=== PATIENT | female | born 1950 | race Caucasian/White ===

== ENCOUNTER → 2020-03-25 15:35 | Outpatient (CLI) | payer MEDICARE, OTHER, SELFPAY ==
--- NOTE | ~2020-03-25 | XR_ITS ---
EXAMINATION: XR chest 2V DATE: 03/25/2020 16:16 INDICATION: Shortness of breath. Chest wall pain. TECHNIQUE: Frontal and lateral views of the chest were obtained. COMPARISON: Chest single view 08/26/2016, thoracic spine CT 10/12/2017 FINDINGS: The chest demonstrates clear lungs without pneumonia, pleural effusion, or pneumothorax. Th e heart size is normal. There are epidural electrodes in thoracic spine. There are surgical clips in the abdomen and left axilla. IMPRESSION: 1. No acute cardiopulmonary disease. Reviewed, dictated and finalized at location A.
== END ==
PROVIDERS: PCP Physician Assistant; Visit Provider Physician Assistant
DX: R06.02 Shortness of breath (principal)
CPT/HCPCS: 71046

== ENCOUNTER → 2022-09-16 14:26 | Outpatient (CLI) | payer MEDICARE, OTHER, SELFPAY ==
--- NOTE | ~2022-09-16 | DEXA_ITS ---
Bone Density Report Name: YESSY KENNEDY Age: 72 Sex: Female Ethnicity: White Date of : 1950 Indication: postmenopausal osteoporosis; height loss; prior fracture; asthma or emphysema; hysterectomy; Referring Provider: GERI, CHOLO Study: Bone densitometry was performed. Exam Date: September 16, 2022 Accession number: [id number] Bone Density: Region BMD T-score Z-score Classification AP Spine (L1-L4) 0.756 -2.6 -0.4 Osteoporosis Femoral Neck (Right) 0.407 -4.0 -2.1 Osteoporosis Total Hip (Right) 0.493 -3.7 -2.1 Osteoporosis World Health Organization criteria for BMD impression classify patients as: Normal (T-score at or above -1.0), Osteopenia (T-score between -1.0 and -2.5), or Osteoporosis (T-score at or below -2.5). 10-year Fracture Risk: FRAX not reported because: Some T-score for Spine Total or Hip Total or Femoral Neck at or below -2.5 Prior hip or vertebral fracture Previous Exams: Region Exam Age BMD T-score BMD Change BMD Change Date g/cm2 vs Baseline vs Previous AP Spine(L1-L4) 09/16/2022 72 0.756 -2.6 0.033* 0.033* 11/16/2018 68 0.723 -2.9 Total Hip(Right) 09/16/2022 72 0.493 -3.7 -0.158* -0.158* 11/16/2018 68 0.651 -2.4 *Denotes significance at 95% confidence level, LSC for AP Spine = 0.022 g/cm2, LSC for Total Hip = 0.027 g/cm2 Clinical Information Provided by Patient: Have had a previous hip or vertebral fracture Has had a low trauma fracture Has used the following medications: Vitamin D, GREGG Has the following medical conditions: Asthma or Emphysema, Hysterectomy, BR 1999 Patient maximum height was 65 Menopause Age: 42 No regular weight bearing exercise Does not regularly consume dairy products Drinks caffeinated beverages Onset of menses at age 14 Number of children 1 Missed period for more than 6 months in a row Impression: The patient has established osteoporosis, based on the Right Femoral Neck T-score and the existence of a prior fracture. The patient has risk factors, including: previous fracture. The BMD for the Total Hip(Right) decreased, changing by -0.158 since the last DXA exam. Discussion: HIGH RISK OF FRACTURE. BONE DENSITY IS UNDESIRABLY LOW AT ONE OR MORE SKELETAL SITES, CONSISTENT WITH POSTMENOPAUSAL OSTEOPOROSIS. This patient's lowest T-score, in a patient who has previously fractured, meets the World Health Organization's (WHO) criteria for severe osteoporosis. In untreated patients, the risk of osteoporotic fracture increases approximately tw
== END ==
PROVIDERS: PCP Physician Assistant; Visit Provider Physician Assistant
DX: Z78.0 Asymptomatic menopausal state (principal); M81.0 Age-related osteoporosis without current pathological fracture
CPT/HCPCS: 77080

== ENCOUNTER 2023-05-20 22:54 | Observation (INO) | payer MEDICARE, OTHER, SELFPAY ==
--- NOTE | ~2023-05-20 | CT_ITS ---
EXAMINATION: CT brain wo con DATE: 05/21/2023 00:39 INDICATION: Dizziness, weakness, nausea, generalized body pain TECHNIQUE: Computed tomography (CT) of the head was performed without intravenous contrast. The mA wa s adjusted according to patient size. Iterative reconstruction technique was employed. Exam dose: 60 5.33 mGy-cm total exam DLP. COMPARISON: 04/01/2016 CT brain FINDINGS: Bilateral vertebral artery, basilar artery and prominent bilateral carotid siphon internal carotid artery calcifications. Chronic right basal ganglia/periventricular infarct No intracranial mass lesion or hemorrhage or recent cerebrovascular accident is evident. No midline s hift or mass effect. No subdural or epidural hematoma. No fracture or bone destruction of the cranial vault. The mastoid air cells and included paranasal si nuses are unremarkable. IMPRESSION: Cerebral atherosclerosis and chronic small vessel ischemic changes of cerebral white mat ter, chronic right basal ganglia/periventricular lacunar infarct No acute intracranial finding or significant change since 04/01/2016 Reviewed, dictated and finalized at Location [facility]. Reviewed, dictated and finalized at location A. IMPRESSION: Cerebral atherosclerosis and chronic small vessel ischemic changes of cerebral white matter, chronic right basal ganglia/periventricular lacunar infarct No acute intracranial finding or significant change since 04/01/2016
[2023-05-20 22:58] VITALS: BP 134/81; PULSE 81; RESP 20; TEMP 36.6; O2SAT 100
--- NOTE | 2023-05-20 23:17 | ECG_ITS ---
Measurements Intervals [place] Rate: 68 P: 62 [place]: 188 QRS: -81 QRSD: 170 T: 77 QT: 433 QTc: 461 Interpretive Statements ELECTRONIC VENTRICULAR PACEMAKER BASELINE ARTIFACT NO FURTHER INTERPRETATION POSSIBLE NO PREVIOUS ECG AVAILABLE FOR COMPARISON Electronically Signed On 05-21-2023 13:40:55 CDT by Rancho Bill M.D.
[2023-05-20 23:45] LABS: Basophils Percent Auto 0.3 % (0.2-1.2); Eosinophils Absolute Auto 0.1 K/mm3 (0-0.3); Eosinophils Percent Auto 0.7 % (0-4.4); Hematocrit 37.1 % (37.0-47.0); Hemoglobin 11.8 g/dL (12.0-15.0); Immature Granulocyte Absolute 0.03 K/mm3 (0.00-0.031); Immature Granulocyte Percent A 0.2 % (0-0.5); Lymphocytes Absolute Auto 3.47 K/mm3 (0.9-3.2); Lymphocytes Percent Auto 28.7 % (18.3-44.2); Mean Corpuscular HGB Conc 31.8 g/dl (32-36); Mean Corpuscular Volume 97.4 fl (80-100); Mean Platelet Volume 10.9 fl (7.4-10.4); Monocytes Absolute Auto 1.1 K/mm3 (0.1-0.6); Monocytes Percent Auto 9.3 % (2.6-8.5); Neutrophils Absolute Auto 7.3 K/mm3 (1.3-6.7); Neutrophils Percent Auto 60.8 % (45.5-73.1); Platelet Count Result 326 k/mm3 (150-375); Red Blood Count 3.81 M/mm3 (4.2-5.4); Red Cell Distribution Width 12.4 % (11.5-14.5); White Blood Count 12.1 K/mm3 (4.5-10.0)
[2023-05-21] VITALS (10 sets, daily range): BP systolic 125–173; BP diastolic 46–79; PULSE 63–78; RESP 12–21; TEMP 36.6–36.8; O2SAT 98–100; BMI 28.3
--- NOTE | 2023-05-21 00:10 | ED.DIZZY ---
HPI - Dizziness General Chief Complaint: Dizziness Stated Complaint: Generalized weakness, dizziness Time Seen by Provider: 05/20/23 23:25 Source: patient and family Mode of arrival: wheelchair Limitations: no limitations History of Present Illness HPI Narrative: 73-year-old female presenting to emergency department chief complaint of dizziness. Patient says that she has been feeling generally weak all day and her son stay with her. No specific areas of weakness and she is not sure why she was feeling that way. When she transitions herself from her wheelchair to the commode she said she got slightly lightheaded like she was off balance but was able to get to the commode and did not fall. After she got off the commode and went to her bed to lay down she reports feeling some severe vertigo like symptoms with room spinning dizziness. Lasted about 5 minutes and then went away. Since then she has not had any further symptoms of dizziness but is still feeling generally weak. Denies any other complaints at this point. All other symptoms and complaints are negative as per ROS. Related Data Home Medications Medication Instructions Recorded Confirmed acetaminophen 500 mg tablet 1,000 mg PO Q12H PRN 11/03/20 05/03/21 (Tylenol Extra Strength) atorvastatin 80 mg tablet 80 mg PO DAILY 11/03/20 05/03/21 cyclosporine 0.05 % eye drops in a 1 drp EACH EYE Q12H 11/03/20 05/03/21 dropperette (Restasis) glimepiride 2 mg tablet 2 mg PO BID 11/03/20 05/03/21 metformin 850 mg tablet 212.5 mg PO BID 11/03/20 05/03/21 zcedpjzi-zbrx-ltca 8 mg-folic 400 1 tablet PO DAILY 11/03/20 05/03/21 mcg-K 50 mcg-lutein 300 mcg tablet (Centrum Silver Women) sertraline 25 mg tablet (Zoloft) 25 mg PO DAILY 11/03/20 05/03/21 simethicone 125 mg capsule (Gas 125 mg PO DAILY PRN 11/03/20 05/03/21 Relief (simethicone)) bisacodyl 5 mg tablet,delayed 5 mg PO ONCE 05/03/21 05/03/21 release (Dulcolax (bisacodyl)) guar gum [Benefiber (guar gum)] PO 05/03/21 05/03/21 dextromethorphan-guaifenesin ER 60 1 tablet PO Q12H 06/30/22 mg-1,200 mg tab,extend release,12hr (Mucinex DM) hydroxyzine HCl 10 mg tablet 10 mg PO TID PRN 06/30/22 lisinopril 40 mg tablet 40 mg PO DAILY 06/30/22 Allergies Allergy/AdvReac Type Severity Reaction Status Date / Time amitriptyline Allergy Mild Unknown Verified 05/20/23 23:03 baclofen Allergy Mild Unknown Verified 05/20/23 23:03 budesonide Allergy Mild Unknown Verified 05/20/23 23:03 carbamazepine Allergy Mild Unknown Verified 05/20/23 23:03 ciprofloxacin Allergy Mild Unknown Verified 05/20/23 23:03 doxycycline Allergy Mild Unknown Verified 05/20/23 23:03 erythromycin base Allergy Mild Unknown Verified 05/20/23 23:03 gabapentin Allergy Mild Unknown Verified 05/20/23 23:03 gatifloxacin Allergy Mild Unknown Verified 05/20/23 23:03 ibuprofen Allergy Mild Unknown Verified 05/20/23 23:03 lithium Allergy Mild Unknown Verified 05/20/23 23:03 metronidazole Allergy Mild Unknown Verified 05/20/23 23:03 mometasone furoate Allergy Mild Unknown Verified 05/20/23 23:03 naproxen Allergy Mild Unknown Verified 05/20/23 23:03 nortriptyline Allergy Mild Unknown Verified 05/20/23 23:03 Penicillins Allergy Mild Unknown Verified 05/20/23 23:03 prednisone Allergy Mild Unknown Verified 05/20/23 23:03 pregabalin Allergy Mild Unknown Verified 05/20/23 23:03 tramadol Allergy Mild Unknown Verified 05/20/23 23:03 milnacipran Allergy Unknown Unknown Verified 05/20/23 23:03 BUPROPION HCL Allergy Mild Unknown Uncoded 05/20/23 23:03 BUSPIRONE HCL Allergy Mild Unknown Uncoded 05/20/23 23:03 CETIRIZINE HCL Allergy Mild Unknown Uncoded 05/20/23 23:03 DULOXETINE HCL Allergy Mild Unknown Uncoded 05/20/23 23:03 FLUOXETINE HCL Allergy Mild Unknown Uncoded 05/20/23 23:03 OXYBUTYNIN CHLORIDE Allergy Mild Unknown Uncoded 05/20/23 23:03 PAROXETINE HCL Allergy Mild Unknown Uncoded 05/20/23 23:03 SERTRALINE HCL Allergy Mild Unknown Uncoded 05/20/23 23:03 THEOPHYLLINE ANHYDROUS [place]
[2023-05-21 00:19] LABS: Appearance Urine Cloudy (Clear); Bacteria Urine 4+ /hpf; Bilirubin Urine Negative (Negative); Blood Urine Trace (Negative); Color Urine Yellow (Yellow); Glucose Urine UA 2+ mg/dL (Negative); Ketones Urine Trace mg/dL (Negative); Leukocyte Esterase Ur 2+ LEU/UL (Negative); Need Manual Microscopic Reviewed; Nitrate Urine Positive (Negative); Protein Urine Trace mg/dL (Negative); Specific Grav Ur 1.025 (1.001-1.035); Squamous Epithelial Cell Urine Few /hpf (Few); Urobilinogen Urine 0.2 mg/dL (<2.0); WBC Urine 51-100 /hpf; pH Urine 6.5 (5.0-9.0)
[2023-05-21 00:20] LABS: Add Urine Microscopic? YES
[2023-05-21] MEDS: CALCIUM CARBONATE (TUMS) 500 MG (200 MG ELEMENTAL) PO (00:58)
[2023-05-21 01:02] LABS: Troponin I < 0.012 ng/mL (0.000-0.034)
--- NOTE | 2023-05-21 01:46 | PC.NURSE ---
called lab to have cmp ran
[2023-05-21 02:24] LABS: Alanine Aminotransferase 19 U/L (6-35); Albumin Level 3.9 g/dL (3.5-5.1); Alkaline Phosphatase 97 U/L (38-126); Anion Gap 9 mmol/L (8-16); Aspartate Amino Transferase 20 U/L (14-36); Bilirubin,Total 0.4 mg/dL (0.2-1.3); Blood Urea Nitrogen 19 mg/dL (7-17); Calcium 10.1 mg/dL (8.4-10.2); Carbon Dioxide 24 mmol/L (22-30); Chloride 104 mmol/L (98-107); Estimated CRCL calculation 68 ml/min; Estimated Glomerular Filt Rate > 60; Glucose 221 mg/dL (65-110); Potassium 4.2 mmol/L (3.4-5.0); Sodium 137 mmol/L (137-145)
[2023-05-21] MEDS: SODIUM CHLORIDE 0.9% IV 1,000 ML 999 ML IV CONT (03:06)
--- NOTE | 2023-05-21 03:06 | PC.NURSE ---
Report received from BERNADINE Powell. Assumed care of patient at this time.
--- NOTE | 2023-05-21 04:11 | ADMGEN ---
This patient, Sho Mabry, was admitted to Medical Room 258-. Patient/family oriented to hospital policies and general routines including ID bracelet, bed and alarms, visiting hours, pain management, procedures, bathroom and other care routines, personal items, smoking policy, room service/diet, and visiting hours. Information on how to activate the Rapid Response Team has been discussed. Patient/Family are encouraged to report perceived risks to care and to ask questions if they do not understand what they are told or what they should do.
[2023-05-21] MEDS: SODIUM CHLORIDE 0.9% IV 1,000 ML 125 ML IV CONT ×2 (05:00→13:03)
--- NOTE | 2023-05-21 06:49 | PM.IMHP ---
H&P: HPI History of Present Illness Date/Time: 05/21/23 06:49 Chief Complaint: Weakness, dizziness Narrative: 73-year-old female with a past medical history of diabetes, hypertension, hyperlipidemia, GERD and anxiety who presented to the ER via private vehicle with family for evaluation of weakness and dizziness. The patient stated that she started feeling bad around 18:00. She got up from our computer and ambulated with her walker to a bedside commode. She used the commode and when she went to get up she felt weak and lightheaded. She decided to go lying on her bed. When she went to lay back on her bed she felt like the wall was moving towards her and that the room was spinning. She denies any changes in visual acuity, headache. She does have chronic nasal congestion and feels dry all the time. She denies any fullness in her ears. She has not had any sore throat or difficulty swallowing. She denies any difficulties in speech. She has chronic weakness and difficulty with ambulation due to neuropathy. She reports that she was recently started on Neurontin about 3 or 4 weeks ago and thinks that some of her symptoms may be due to Neurontin. She reports that it makes her feel like she is in a fog and feels numb all over. She thinks that may have caused some of her dizziness. She denies any increased urinary frequency or urgency. She occasionally feels like she has incomplete bladder emptying but denies any currently. She has not had any hematuria. She reports that she is chronically chilled in keeps her house at 78?. She denies any known fevers. She has been afebrile since admission. In the ER and UA was performed which demonstrated findings suggestive of UTI. Patient has CTA scan of her head in the ER that was negative for acute process. She is not candidate for MRI due to a pacemaker was placed 1 year ago and a neurostimulator that she has had for many years. The patient and her son did not feel patient was strong enough to get up in and out of her wheelchair and return home. The patient lives at home alone. Patient was subsequently admitted for observation. Patient does report that she has loose stools any time she drinks her V8 energy drinks. She had 2 or 3 loose stools yesterday and immediately following my examination of her abdomen she complained of feeling as if she was going to have another bowel movement. She denies any recent antibiotic use or travel. Review of Systems Review of Systems: 12 systems were reviewed with pertinent positives and negatives per HPI. Except as documented in the HPI, all other systems were reviewed and are negative. [facility] Past Medical History Medical History (Updated 05/21/23 @ 08:00 by Alison Brink DO) Breast cancer Complex regional pain syndrome Diabetes Diabetic neuropathy Essential hypertension Fibromyalgia GERD (gastroesophageal reflux disease) Iron deficiency anemia Irritable bowel Stroke Chronic left sided weakness and numbness Surgical History Surgical History (Updated 05/21/23 @ 07:53 by Alison Brink DO) H/O cataract extraction H/O: hysterectomy History of bilateral mastectomy History of left hip replacement History of tonsillectomy Hx of cholecystectomy Pacemaker Left chest placed 2021 Status post insertion of spinal cord stimulator Family History Family History Father Family history of emphysema Acute myocardial infarction, Onset Age: 72 , Onset Age: 72 Mother Multiple myeloma, Onset Age: 92 , Onset Age: 92 Other Family history of malignant neoplasm Social History Social History (Updated 05/21/23 @ 08:02 by Alison Brink DO) Social History: Patient has been since 2020. She lives in her own home. Her only son comes and checks on her 3 or 4 times a week. 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 She uses a wheelchair
[2023-05-21 08:09] LABS: Glucose Point of Care 203 mg/dl (65-105)
[2023-05-21] MEDS: PANTOPRAZOLE 40 MG TABLET PO (08:48)
[2023-05-21] MEDS: INSULIN ASPART (*BKC) 100 UNITS/ML SUB-Q ×3 (08:50→16:58)
[2023-05-21] MEDS: ATORVASTATIN 40 MG TABLET 80 MG PO (08:57)
[2023-05-21] MEDS: guaiFENesin 600 MG/DEXTROMETHORPHAN 30 MG SR TAB 12 HR 2 TAB PO ×2 (08:57→21:18)
[2023-05-21] MEDS: metFORMIN HCL 500 MG TABLET PO ×2 (08:57→17:01)
[2023-05-21] MEDS: lisinopriL 20 MG TABLET 40 MG PO (08:58)
[2023-05-21] MEDS: CHOLECALCIFEROL 1,000 UNITS TABLET 5000 UNITS PO (08:58)
[2023-05-21] MEDS: hydrALAZINE HCL 50 MG TABLET PO ×3 (08:58→21:19)
[2023-05-21] MEDS: ACETAMINOPHEN 500 MG TABLET 1000 MG PO ×2 (08:58→21:18)
[2023-05-21] MEDS: THERAPEUTIC MULTIVITAMINS/MINERALS TAB (*BKC) 1 TABLET PO (08:58)
[2023-05-21 11:28] LABS: IFOB Positive Control Positive; Immunochemical Fecal Occult Bl Negative (N)
[2023-05-21 11:46] LABS: Glucose Point of Care 222 mg/dl (65-105)
[2023-05-21] MEDS: MECLIZINE HCL 12.5 MG TABLET PO (11:46)
[2023-05-21 12:04] LABS: Toxigenic C. Diff NEGATIVE (NEGATIVE)
[2023-05-21 12:41] LABS: Basophils Percent Auto 0.4 % (0.2-1.2); Eosinophils Absolute Auto 0.1 K/mm3 (0-0.3); Hematocrit 33.7 % (37.0-47.0); Hemoglobin 10.5 g/dL (12.0-15.0); Immature Granulocyte Absolute 0.05 K/mm3 (0.00-0.031); Immature Granulocyte Percent A 0.5 % (0-0.5); Lymphocytes Absolute Auto 2.36 K/mm3 (0.9-3.2); Lymphocytes Percent Auto 22.1 % (18.3-44.2); Mean Corpuscular HGB Conc 31.2 g/dl (32-36); Mean Corpuscular Volume 99.4 fl (80-100); Mean Platelet Volume 10.7 fl (7.4-10.4); Neutrophils Absolute Auto 7.2 K/mm3 (1.3-6.7); Platelet Count Result 257 k/mm3 (150-375); Red Blood Count 3.39 M/mm3 (4.2-5.4); Red Cell Distribution Width 12.5 % (11.5-14.5); White Blood Count 10.7 K/mm3 (4.5-10.0)
[2023-05-21 12:52] LABS: Alanine Aminotransferase 17 U/L (6-35); Albumin Level 3.2 g/dL (3.5-5.1); Alkaline Phosphatase 69 U/L (38-126); Anion Gap 6 mmol/L (8-16); Aspartate Amino Transferase 24 U/L (14-36); Bilirubin,Total 0.6 mg/dL (0.2-1.3); Blood Urea Nitrogen 13 mg/dL (7-17); Calcium 8.9 mg/dL (8.4-10.2); Carbon Dioxide 22 mmol/L (22-30); Chloride 109 mmol/L (98-107); Estimated CRCL calculation 81 ml/min; Estimated Glomerular Filt Rate > 60; Glucose 201 mg/dL (65-110); Potassium 3.5 mmol/L (3.4-5.0); Sodium 137 mmol/L (137-145)
--- NOTE | 2023-05-21 13:02 | PM.IMPN ---
Progress Note: A&P Assessment and Plan (1) Acute UTI: Code(s): N39.0 - Urinary tract infection, site not specified Status: Acute Assessment and Plan: Urine with positive nitrates, 2+ leukocyte esterase, 10-20 rbc's, 51-100 wbc's and 4+ bacteria. IV fluids continued. Rocephin initiated. Urine cultures pending. Adjust antibiotic therapy to culture results (2) Vertigo: Code(s): R42 - Dizziness and giddiness Status: Acute Assessment and Plan: A suspect that the patient's vertigo is peripheral in nature given variability and symptoms. Patient is not a candidate for a MRI to rule out central causes of vertigo. Meclizine was offered and patient stated did not help. It was discontinued. Neurontin on hold due to patient thinking it was causing her dizziness. Orthostatics negative Will treat conservatively and monitor. (3) Neurologic gait dysfunction: Code(s): R26.9 - Unspecified abnormalities of gait and mobility Status: Acute Assessment and Plan: CT head within normal limits. PT and OT ordered (4) Generalized weakness: Code(s): R53.1 - Weakness Status: Acute Assessment and Plan: PT and OT ordered (5) Essential hypertension: Code(s): I10 - Essential (primary) hypertension Status: Acute Assessment and Plan: Will resume the patient's home antihypertensives and monitor closely. (6) Type 2 diabetes mellitus with hyperglycemia, without long-term current use of insulin: Code(s): E11.65 - Type 2 diabetes mellitus with hyperglycemia Status: Acute Assessment and Plan: Insulin Lispro sliding scale, Accu-checks qAc and HS Continue metformin Initiate hypoglycemic precautions Plan Patient's urine is suspicious for UTI. May be some of the patient's neurologic symptoms is due to early symptoms of UTI. Will continue Rocephin and await urine cultures. Patient does describe some vertigo symptoms. She does have a little bit of fluid behind the left ear but does not appear to be infected. Will give IV fluids and see if this does not help the patient's symptoms. Will check orthostatic vitals to rule out possible component of orthostatic hypotension. The patient is concerned that Neurontin may be causing her symptoms. She does have Neurontin already listed on her home allergy list. Patient did have Neurontin filled recently she must [facility] nursing staff not to place it on her med rec as I do not see it available as an option for me to addressed Given the patient's generalized weakness on top of her chronic gait instability will ask PT and OT to evaluate the patient to ensure safe discharge planning. Will avoid over-correction of patient's blood pressures in case there is a component of orthostatic hypotension. Patient does have diabetes and only takes a 3rd of a tablet of her metformin at home. She he is hyperglycemic at this point. Will place patient on 500 mg of metformin daily will place patient on low-dose sliding scale insulin with Accu-Cheks a.c. HS and hypoglycemia protocol. Patient has been admitted as observation status. Subjective Date/time seen: 05/21/23 13:02 Interval history: Patient complains of dizziness although after looking through medical history this may be more of a chronic issue. She denies any dysuria. She states that she is very weak and offer PT and OT. Encourage her to work with PT and OT. Patient is weary about working with OT due to incident with the home health occupational therapist a while back. Assured her that would be in her best interest to participate in occupational therapy. I was contacted by nurse and stated that patient had 1 episode of watery diarrhea. Stool was sent for culture. Exam Narrative: GENERAL: Comfortable, no acute distress HENMT: moist mucous membranes EYES: EOM intact b/l NECK: no lymphadenopathy RESPI
[2023-05-21] MEDS: CALCIUM CARBONATE (TUMS) 500 MG (200 MG ELEMENTAL) 300 MG PO (13:18)
[2023-05-21] MEDS: TOLNAFTATE 1% POWDER 45 GM BTL 1 APPLIC TOPICAL ×2 (13:23→21:19)
--- NOTE | 2023-05-21 15:26 | PCOTNOTE ---
Attempted to see pt. for occupational therapy evaluation. Pt. declined to participate at this time due to dizziness while seated upright. Nursing aware.
[2023-05-21] MEDS: clonazePAM (*CRX) 0.25 MG TABLET 0.125 MG PO ×2 (15:29→21:18)
[2023-05-21 16:42] LABS: Glucose Point of Care 210 mg/dl (65-105)
[2023-05-21 21:07] LABS: Glucose Point of Care 168 mg/dl (65-105)
[2023-05-21] MEDS: diphenhydrAMINE HCL ELIXIR 12.5 MG/5 ML UDC 25 MG PO (21:18)
[2023-05-22 04:40] VITALS: BP 119/50; PULSE 60; RESP 12; TEMP 36.7; O2SAT 98
[2023-05-22] MEDS: hydrALAZINE HCL 50 MG TABLET PO ×2 (05:52→14:04)
[2023-05-22 05:57] LABS: Basophils Percent Auto 0.4 % (0.2-1.2); Eosinophils Absolute Auto 0.2 K/mm3 (0-0.3); Eosinophils Percent Auto 1.5 % (0-4.4); Hemoglobin 10.5 g/dL (12.0-15.0); Immature Granulocyte Absolute 0.05 K/mm3 (0.00-0.031); Immature Granulocyte Percent A 0.5 % (0-0.5); Lymphocytes Absolute Auto 3.53 K/mm3 (0.9-3.2); Lymphocytes Percent Auto 32.1 % (18.3-44.2); Mean Corpuscular HGB Conc 30.9 g/dl (32-36); Mean Corpuscular Hemoglobin 30.5 pg (26-34); Mean Corpuscular Volume 98.8 fl (80-100); Mean Platelet Volume 11.3 fl (7.4-10.4); Monocytes Percent Auto 9.2 % (2.6-8.5); Neutrophils Absolute Auto 6.2 K/mm3 (1.3-6.7); Neutrophils Percent Auto 56.3 % (45.5-73.1); Platelet Count Result 271 k/mm3 (150-375); Red Blood Count 3.44 M/mm3 (4.2-5.4); Red Cell Distribution Width 12.6 % (11.5-14.5)
[2023-05-22 06:11] LABS: Alanine Aminotransferase 17 U/L (6-35); Albumin Level 3.4 g/dL (3.5-5.1); Alkaline Phosphatase 73 U/L (38-126); Anion Gap 8 mmol/L (8-16); Aspartate Amino Transferase 21 U/L (14-36); Bilirubin,Total 0.5 mg/dL (0.2-1.3); Blood Urea Nitrogen 12 mg/dL (7-17); Calcium 8.8 mg/dL (8.4-10.2); Carbon Dioxide 21 mmol/L (22-30); Chloride 110 mmol/L (98-107); Estimated CRCL calculation 81 ml/min; Estimated Glomerular Filt Rate > 60; Glucose 170 mg/dL (65-110); Potassium 3.6 mmol/L (3.4-5.0); Sodium 139 mmol/L (137-145)
[2023-05-22 08:31] LABS: Glucose Point of Care 189 mg/dl (65-105)
[2023-05-22 08:42] VITALS: BP 128/51; PULSE 70; O2SAT 97
[2023-05-22 08:46] VITALS: O2SAT 96
[2023-05-22] MEDS: lisinopriL 20 MG TABLET 40 MG PO (08:48)
[2023-05-22] MEDS: THERAPEUTIC MULTIVITAMINS/MINERALS TAB (*BKC) 1 TABLET PO (08:48)
[2023-05-22] MEDS: ATORVASTATIN 40 MG TABLET 80 MG PO (08:48)
[2023-05-22] MEDS: metFORMIN HCL 500 MG TABLET PO (08:49)
[2023-05-22] MEDS: ACETAMINOPHEN 500 MG TABLET 1000 MG PO (08:49)
[2023-05-22] MEDS: guaiFENesin 600 MG/DEXTROMETHORPHAN 30 MG SR TAB 12 HR 2 TAB PO (08:49)
[2023-05-22] MEDS: PANTOPRAZOLE 40 MG TABLET PO (08:49)
[2023-05-22] MEDS: CHOLECALCIFEROL 1,000 UNITS TABLET 5000 UNITS PO (08:50)
[2023-05-22] MEDS: TOLNAFTATE 1% POWDER 45 GM BTL 1 APPLIC TOPICAL (08:51)
--- NOTE | 2023-05-22 09:15 | PCPTNOTE ---
Attempted PT evaluation, pt eating breakfast. Will follow
[2023-05-22 12:39] LABS: Glucose Point of Care 194 mg/dl (65-105)
--- NOTE | 2023-05-22 12:45 | PM.DS ---
DS: Admitting Diagnosis Discharge Date 05/22/23 Admitting Diagnosis Dizziness, UTI DS: Discharge Diagnosis Discharge Diagnosis (1) Acute UTI: Code(s): N39.0 - Urinary tract infection, site not specified Status: Acute (2) Vertigo: Code(s): R42 - Dizziness and giddiness Status: Acute (3) Neurologic gait dysfunction: Code(s): R26.9 - Unspecified abnormalities of gait and mobility Status: Acute (4) Generalized weakness: Code(s): R53.1 - Weakness Status: Acute (5) Essential hypertension: Code(s): I10 - Essential (primary) hypertension Status: Acute (6) Type 2 diabetes mellitus with hyperglycemia, without long-term current use of insulin: Code(s): E11.65 - Type 2 diabetes mellitus with hyperglycemia Status: Acute DS: Summary Hospital Course Hospital Course: This is a 73-year-old female with past medical history of diabetes, hypertension, hyperlipidemia, GERD anxiety and depression that presented to the ED on 05/21/2023 due to weakness and dizziness. Patient had been walking to her bedside commode when she suddenly felt weak and lightheaded. She ended up calling her son and he was able to get her to the ER. The patient thought that it was due to her Neurontin thus Neurontin was discontinued here. Her UA was suggestive of a UTI and she was started on Rocephin. CTA of the head revealed no acute intracranial process. She is unable to get MRI due to neurostimulator. She lives home alone and states that she has had progressive weakness for years and is unchanged. PT and OT ordered for evaluation. Dizziness improved after IV fluids were given. Urine culture came back as no growth. Pt had bad experience with home health OT and states she does not want to work with them. Her labs and vital signs are stable and she is medically cleared for discharge at this time. Time Spent with Patient Time attestation: Total time spent providing and/or coordinating discharge services: Exam Narrative: GENERAL: Comfortable, no acute distress HENMT: moist mucous membranes EYES: EOM intact b/l NECK: no lymphadenopathy RESPIRATORY: clear to auscultation CARDIO: RRR GI: soft, nontender, bowel sounds present SKIN: no rashes EXTREMITIES: no edema, redness or tenderness DS: Data Data Completed and Pending Labs on day of discharge: Labs from last 24 hours 05/22/23 05/22/23 05/22/23 12:30 08:26 05:08 WBC 11.0 H RBC 3.44 L Hgb 10.5 L Hct 34.0 L MCV 98.8 MCH 30.5 MCHC 30.9 L RDW 12.6 Plt Count 271 MPV 11.3 H Immature Gran % (Auto) 0.5 Neut % (Auto) 56.3 Lymph % (Auto) 32.1 [place] % (Auto) 9.2 H Eos % (Auto) 1.5 Baso % (Auto) 0.4 Lymph # (Auto) 3.53 H [place] # (Auto) 1.0 H Eos # (Auto) 0.2 Baso # (Auto) 0.0 Abs Immat Gran (auto) 0.05 H Absolute Neuts (auto) 6.2 Absolute Nucleated RBC 0.0 Nucleated RBC % 0.0 Sodium 139 Potassium 3.6 Chloride 110 H Carbon Dioxide 21 L Anion Gap 8 BUN 12 Creatinine 0.50 L Estim Creat Clear Calc 81 Estimated GFR > 60 Glucose 170 H POC Capillary Glucose 194 H 189 H Calcium 8.8 Total Bilirubin 0.5 AST 21 ALT 17 Alkaline Phosphatase 73 Total Protein 6.0 L Albumin 3.4 L 05/21/23 05/21/23 05/21/23 21:03 16:26 12:36 WBC RBC Hgb Hct MCV MCH MCHC RDW Plt Count MPV Immature Gran % (Auto) Neut % (Auto) Lymph % (Auto) [place] % (Auto) Eos % (Auto) Baso % (Auto) Lymph # (Auto) [place] # (Auto) Eos # (Auto) Baso # (Auto) Abs Immat Gran (auto) Absolute Neuts (auto) Absolute Nucleated RBC Nucleated RBC % Sodium 137 Potassium 3.5 Chloride 109 H Carbon Dioxide 22 Anion Gap 6 L BUN 13 D Creatinine 0.50 L Estim Creat Clear Calc 81 Estimated GFR > 60 Glucose 201 H POC Capillary Glucose
[2023-05-22 13:01] VITALS: BP 133/53; PULSE 69; RESP 16; TEMP 37.2; O2SAT 100
--- NOTE | 2023-05-25 06:52 | PC.NURSE ---
Stool studies show no growth.
== END 2023-05-22 16:05 | disposition home or self-care (01) ==
LOC: ANHED 05-21 03:16 → ANH2MED 05-21 05:51
PROVIDERS: Internal Medicine Critical Care Medicine; Admitting Provider Internal Medicine; Emergency Provider Emergency Medicine; PCP Physician Assistant; Visit Provider Internal Medicine
DX: R42 Dizziness and giddiness (principal); N39.0 Urinary tract infection, site not specified; R53.1 Weakness; M79.7 Fibromyalgia; I10 Essential (primary) hypertension; E11.40 Type 2 diabetes mellitus with diabetic neuropathy, unspecified; E11.65 Type 2 diabetes mellitus with hyperglycemia; R26.9 Unspecified abnormalities of gait and mobility; Z99.3 Dependence on wheelchair; I67.2 Cerebral atherosclerosis; R90.82 White matter disease, unspecified; G90.50 Complex regional pain syndrome I, unspecified; R10.13 Epigastric pain; K21.9 Gastro-esophageal reflux disease without esophagitis; R05.9 Cough, unspecified; D50.9 Iron deficiency anemia, unspecified; K58.9 Irritable bowel syndrome, unspecified; Z66 Do not resuscitate; Z95.0 Presence of cardiac pacemaker; Z86.73 Personal history of transient ischemic attack (TIA), and cerebral infarction without residual deficits; Z79.1 Long term (current) use of non-steroidal anti-inflammatories (NSAID); Z79.82 Long term (current) use of aspirin; Z79.84 Long term (current) use of oral hypoglycemic drugs; Z79.899 Other long term (current) drug therapy
CPT/HCPCS: 36415; 70450; 80053; 81001; 82274; 82948; 84484; 85025; 87045; 87086; 87088; 87427; 87449; 87493; 93005; 96361; 96365; 97161; 97165; 97535; 99285; A9270; G0378; J0696; J1815; J7030

== ENCOUNTER 2023-07-11 11:08 | Outpatient (CLI) | payer MEDICARE, OTHER, SELFPAY ==
--- NOTE | 2023-07-11 | ECG_ITS ---
Measurements Intervals [place] Rate: 67 P: 64 [place]: 191 QRS: -60 QRSD: 148 T: 96 QT: 424 QTc: 448 Interpretive Statements ELECTRONIC VENTRICULAR PACEMAKER ABNORMAL RHYTHM ECG COMPARED TO ECG 05/20/2023 23:24:26 NO SIGNIFICANT CHANGES Electronically Signed On 07-11-2023 13:58:22 [employer]STRUCTOR FLYING by Darlene Ruiz M.D.
[2023-07-11 12:08] LABS: Basophils Absolute Auto 0.1 K/mm3 (0.0-0.1); Basophils Percent Auto 0.5 % (0.2-1.2); Eosinophils Absolute Auto 0.1 K/mm3 (0-0.3); Eosinophils Percent Auto 1.5 % (0-4.4); Hematocrit 39.8 % (37.0-47.0); Hemoglobin 12.4 g/dL (12.0-15.0); Immature Granulocyte Absolute 0.02 K/mm3 (0.00-0.031); Immature Granulocyte Percent A 0.2 % (0-0.5); Lymphocytes Absolute Auto 2.75 K/mm3 (0.9-3.2); Lymphocytes Percent Auto 29.4 % (18.3-44.2); Mean Corpuscular HGB Conc 31.2 g/dl (32-36); Mean Corpuscular Hemoglobin 30.2 pg (26-34); Mean Corpuscular Volume 97.1 fl (80-100); Mean Platelet Volume 10.5 fl (7.4-10.4); Monocytes Absolute Auto 0.9 K/mm3 (0.1-0.6); Monocytes Percent Auto 9.2 % (2.6-8.5); Neutrophils Absolute Auto 5.5 K/mm3 (1.3-6.7); Neutrophils Percent Auto 59.2 % (45.5-73.1); Platelet Count Result 370 k/mm3 (150-375); Red Cell Distribution Width 12.6 % (11.5-14.5); White Blood Count 9.4 K/mm3 (4.5-10.0)
[2023-07-11 12:21] LABS: Alanine Aminotransferase 29 U/L (6-35); Albumin Level 4.3 g/dL (3.5-5.1); Alkaline Phosphatase 99 U/L (38-126); Anion Gap 10 mmol/L (8-16); Aspartate Amino Transferase 28 U/L (14-36); Bilirubin,Total 0.5 mg/dL (0.2-1.3); Blood Urea Nitrogen 18 mg/dL (7-17); CRP < 0.5 mg/dL (<1.0); Carbon Dioxide 26 mmol/L (22-30); Chloride 105 mmol/L (98-107); Estimated Glomerular Filt Rate > 60; Glucose 283 mg/dL (65-110); Potassium 4.6 mmol/L (3.4-5.0); Sodium 141 mmol/L (137-145)
[2023-07-11 13:18] LABS: Appearance Urine Cloudy (Clear); Bacteria Urine 4+ /hpf; Bilirubin Urine Negative (Negative); Blood Urine Negative (Negative); Color Urine Yellow (Yellow); Glucose Urine UA 3+ mg/dL (Negative); Ketones Urine Negative (Negative); Leukocyte Esterase Ur Negative LEU/UL (Negative); Nitrate Urine Positive (Negative); Non Pathogenic Casts 0-2; Protein Urine Negative (Negative); RBC Urine 0-2 /hpf (0-2); Specific Grav Ur 1.033 (1.001-1.035); Squamous Epithelial Cell Urine Occasional /hpf (Few); Urobilinogen Urine 0.2 mg/dL (<2.0); pH Urine 5.5 (5.0-9.0)
[2023-07-11 13:43] LABS: Add Urine Microscopic? YES
[2023-07-11 15:12] LABS: Erythrocyte Sedimentation Rate 19 mm/hr (0-20)
== END 2023-07-11 11:09 | disposition home or self-care (01) ==
LOC: ANHLAB 11:21
PROVIDERS: PCP Physician Assistant; Visit Provider Anesthesiology Pain Medicine
DX: Z01.818 Encounter for other preprocedural examination (principal); R94.31 Abnormal electrocardiogram [ECG] [EKG]; M54.16 Radiculopathy, lumbar region; Z79.899 Other long term (current) drug therapy; Z95.0 Presence of cardiac pacemaker
CPT/HCPCS: 36415; 80053; 81001; 85025; 85652; 86140; 87077; 87086; 87186; 93005

== ENCOUNTER 2024-07-30 14:05 | Inpatient (IN) | payer MEDICARE, OTHER, SELFPAY ==
--- NOTE | ~2024-07-30 | XR_ITS ---
CHEST RADIOGRAPH CLINICAL HISTORY: syncope, weakness, nausea . COMPARISON: 04/12/2020 TECHNIQUE: Single portable view of the chest. FINDINGS The left mid lung is partially obscured due to pacemaker generator. Wires project over the right atrium and right ventricle. Suspected spinal stimulator projecting over the lower cardiomediastinal silhouette, likely within the lower thoracic spine. The remainder of the cardiomediastinal silhouette is otherwise unremarkable. Peribronchial thickening and coarse interstitial lung markings, an interval change from 2020 examinat ion. IMPRESSION: No focal infiltrate or effusion. Reviewed, dictated and finalized at location A. RMEDIATE PROJECT MANAGER
--- NOTE | ~2024-07-30 | CT_ITS ---
CTA brain carotid Ordering provider: Lino Carter APRN History: . syncope, dysphagia, hx prior stroke . Comparison: None. Technique: CT angiogram head and neck was performed following timed intravenous injection of contrast . Thin slice axial images and reformatted coronal images were obtained. Three dimensional reformatted images of the brain were also obtained using a [employer] workstation. DLP: 1710 mGy-cm FINDINGS: HEAD: --ANTERIOR AND MIDDLE CEREBRAL ARTERIES AND BRANCHES: Normal caliber and contour. --INTERNAL CAROTID ARTERIES: Mild atheromatous disease bilaterally without significant stenosis. No occlusion. --BASILAR ARTERY AND BRANCHES: Normal caliber and contour. No significant atheromatous disease. --POSTERIOR CEREBRAL ARTERIES: Normal caliber and contour --POSTERIOR COMMUNICATING ARTERIES: Not well visualized likely secondary to congenital absence or sma ll size. --ANEURYSM: None visualized. --BRAIN: Please refer to report of CT head performed 24 hours earlier. --BONES AND SUPERFICIAL SOFT TISSUES: Please refer to report of CT head 24 hours earlier. --PARANASAL SINUSES AND MASTOIDS: Please refer to report of CT head done 24 hours earlier. NECK: --RIGHT CERVICAL CAROTID SYSTEM: Trace atheromatous disease of the carotid bulb without significant s tenosis. Percent stenosis per NASCET criteria is 0%. No carotid dissection. --LEFT CERVICAL CAROTID SYSTEM: No significant atheromatous disease of the carotid bulb or proximal i nternal carotid artery. Percent stenosis per NASCET criteria is 0%. No carotid dissection. --VERTEBRAL ARTERIES: Generous caliber and normal contour. --VISUALIZED AORTIC ARCH AND BRANCHING VESSELS: Trace atheromatous disease but no significant stenosi s. --SOFT TISSUES: Unremarkable --CERVICAL SPINE: Age appropriate degenerative changes. IMPRESSION: 1. Unremarkable CTA head and neck. 2. Percent stenosis per NASCET criteria is 0%. Reviewed, dictated and finalized at location A. GING MACHINE OPERATOR
--- NOTE | ~2024-07-30 | CT_ITS ---
EXAMINATION: CT brain wo con DATE: 07/30/2024 15:38 INDICATION: Syncope. TECHNIQUE: Computed tomography (CT) of the head was performed without intravenous contrast. The mA wa s adjusted according to patient size. Iterative reconstruction technique was employed. The dose-lengt h product was 605.33 mGy-cm. COMPARISON: Head CT 05/21/2023 FINDINGS: There is an old infarct involving the right basal ganglia, right internal capsule, and righ t frontoparietal garcia radiata. There are scattered areas of low attenuation in the cerebral white m atter. There is no intracranial hemorrhage, acute infarction, or abnormal intracranial mass lesion. T here is ex vacuo dilatation of body of right lateral ventricle. There are likely changes of ocular le ns replacement surgeries. The paranasal sinuses are clear. The mastoid air cells are normal. IMPRESSION: 1. Old infarct involving the right basal ganglia, right internal capsule, and right frontoparietal co matt radiata. 2. Stable moderate nonspecific cerebral white matter disease, which likely represents chronic small v essel ischemic disease. Reviewed, dictated and finalized at location A. OGRAPH MECHANIC IMPRESSION: 1. Old infarct involving the right basal ganglia, right internal capsule, and r ight frontoparietal garcia radiata. 2. Stable moderate nonspecific cerebral white matter disease, which likely repr esents chronic small vessel ischemic disease.
[2024-07-30 14:16] VITALS: BP 154/91; PULSE 81; RESP 18; TEMP 36.3; O2SAT 96
--- NOTE | 2024-07-30 15:02 | ECG_ITS ---
Test Date: 2024-07-30 15:56:21 Measurements Intervals [place] Rate: 88 P: 67 RI: 189 QRS: -82 QRSD: 170 T: 87 QT: 418 QTc: 508 Interpretive Statements ELECTRONIC VENTRICULAR PACEMAKER ABNORMAL RHYTHM ECG No previous ECG available for comparison Electronically Signed On 08-01-2024 08:47:17 MEDICAL OFFICE SPECIALIST by Lamberto Orozco M.D.
--- NOTE | 2024-07-30 15:05 | ED_ITS ---
HPI - Syncope General Chief Complaint: Syncope Stated Complaint: AMS Time Seen by Provider: 07/30/24 14:47 History of Present Illness HPI narrative: 74-year-old female with a past medical history including diabetes, hypertension, hyperlipidemia, GERD, anxiety, chronic weakness and residual left-sided janice deficits from prior stroke. She has a nerve stimulator and pacemaker. Today patient presents to the emergency department for a syncopal event. Patient states that she felt lightheaded and ?dizzy ?she was trying to use the commode and get up off of the commode she felt significantly worse and had to lie back down. Not clear if she did truly syncopized or lose consciousness but she states that she feels generally weak and not eating or drinking these last few days to weeks. Patient lives alone and her son is present at bedside and states that she has not been eating or drinking and is very dehydrated. Unclear if there is any trauma or injury but patient states she did not fall to the ground or hit her head. She is not any blood thinner medications. She has had previous admissions to this facility for generalized weakness with workup showing urinary infections. She otherwise has no new focal deficits on examination and considerations for stroke are less likely. Related Data Home Medications ?Medication ?Instructions ?Recorded ?Confirmed ?Last Taken ?Type acetaminophen 500 mg tablet 1,000 mg PO QAM AND QPM 11/03/20 05/21/23 Unknown History (Tylenol Extra Strength) atorvastatin 80 mg tablet 80 mg PO DAILY 11/03/20 05/21/23 05/20/23 History metformin 850 mg tablet 212.5 mg PO BID 11/03/20 05/21/23 05/20/23 History rlzwccms-nqis-csps 8 mg-folic 400 1 tablet PO DAILY 11/03/20 05/21/23 05/20/23 History mcg-K 50 mcg-lutein 300 mcg tablet (Centrum Silver Women) dextromethorphan-guaifenesin ER 60 1 tablet PO Q12H 06/30/22 05/21/23 05/20/23 History mg-1,200 mg tab,extend release,12hr (Mucinex DM) lisinopril 40 mg tablet 40 mg PO DAILY 06/30/22 05/21/23 05/20/23 History calcium carbonate (Tums) 300 mg PO BID PRN Dyspepsia 05/21/23 05/21/23 Unknown History cholecalciferol (vitamin D3) 125 125 mcg PO DAILY 05/21/23 05/21/23 05/20/23 History mcg (5,000 unit) tablet (Vitamin D3) clonazepam 0.5 mg tablet 0.125 mg PO HS 05/21/23 05/21/23 05/19/23 History diphenhydramine HCl 12.5 mg/5 mL 25 mg PO HS 05/21/23 05/21/23 05/19/23 History prefilled spoon hydralazine 50 mg tablet 50 mg PO TID 05/21/23 05/21/23 05/20/23 History lidocaine HCl 4 % topical cream 1 applic topical QID PRN Muscle 05/21/23 05/21/23 Unknown History (Aspercreme (lidocaine HCl)) Pain menthol 3.2 mg lozenges (Russell 6.4 mg mucous membrane Q2-4H PRN 05/21/23 05/21/23 Unknown History Cough Drops) Cough naproxen sodium 220 mg capsule 220 mg PO BID PRN Mild Pain (Scale 05/21/23 05/21/23 Unknown History (Aleve) Score 1-4) pantoprazole 40 mg tablet,delayed 40 mg PO DAILY 05/21/23 05/21/23 05/20/23 History release pumpkin seed extract-soy germ 300 1 cap PO DAILY 05/21/23 05/21/23 05/20/23 History mg capsule (Azo Bladder Control) Allergies Allergy/AdvReac Type Severity Reaction Status Date / Time amitriptyline Allergy Mild Unknown Verified 07/30/24 17:12 baclofen Allergy Mild Unknown Verified 07/30/24 17:12 budesonide Allergy Mild Unknown Verified 07/30/24 17:12 carbamazepine Allergy Mild Unknown Verified 07/30/24 17:12 ciprofloxacin Allergy Mild Unknown Verified 07/30/24 17:12 doxycycline Allergy Mild Unknown Verified 07/30/24 17:12 erythromycin base Allergy Mild Unknown Verified 07/30/24 17:12 gabapentin Allergy Mild Unknown Verified 07/30/24 17:12 gatifloxacin Allergy Mild Unknown Verified 07/30/24 17:12 ibuprofen Allergy Mild Unknown Verified 07/30/24 17:12 lithium Allergy Mild Unknown Verified 07/30/24 17:12 metronidazole Allergy Mild Unknown Verified 07/30/24 17:12 mometasone furoate Allergy Mild Unknown Verified 07/30/24 17:12 nortriptyline Allergy Mild Unknown Verified 07/30/24 17:12 Penicillins Allergy Mild Unknown Verified 07/30/24 17:12 prednisone Allergy Mild Unknown Verified 07/30/24 17:12 pregabalin Allergy Mild Unknown Verified 07/30/24 17:12 tramadol Allergy Mild Unknown Verified 07/30/24 17:12 fentanyl Allergy Unknown Unknown Verified 07/30/24 17:12 hydrocodone Allergy Unknown Unknown Verified 07/30/24 17:12 milnacipran Allergy Unknown Unknown Verified 07/30/24 17:12 BUPROPION HCL Allergy Mild Unknown Uncoded 07/30/24 14:32 BUSPIRONE HCL Allergy Mild Unknown Uncoded 07/30/24 14:32 CETIRIZINE HCL Allergy Mild Unknown Uncoded 07/30/24 14:32 DULOXETINE HCL Allergy Mild Unknown Uncoded 07/30/24 14:32 FLUOXETINE HCL Allergy Mild Unknown Uncoded 07/30/24 14:32 OXYBUTYNIN CHLORIDE Allergy Mild Unknown Uncoded 07/30/24 14:32 PAROXETINE HCL Allergy Mild Unknown Uncoded 07/30/24 14:32 SERTRALINE HCL Allergy Mild Unknown Uncoded 07/30/24 14:32 THEOPHYLLINE ANHYDROUS Allergy Mild Unknown Uncoded 07/30/24 14:32 TOLTERODINE TARTRATE Allergy Mild Unknown Uncoded 07/30/24 14:32 TRIAMCINOLONE ACETONIDE Allergy Mild Unknown Uncoded 07/30/24 14:32 [id number] Allergy Unknown Unknown Uncoded 07/30/24 14:32 Aleve Allergy Unknown Unknown Uncoded 07/30/24 14:32 Carbatrol Allergy Unknown Unknown Uncoded 07/30/24 14:32 Cipro Allergy Unknown Unknown Uncoded 07/30/24 14:32 CIPROFLOXACIN HCL Allergy Unknown Unknown Uncoded 07/30/24 14:32 Cymbalta Allergy Unknown Unknown Uncoded 07/30/24 14:32 Detrol Allergy Unknown Unknown Uncoded 07/30/24 14:32 Flagyl Allergy Unknown Unknown Uncoded 07/30/24 14:32 Keflex Allergy Unknown Unknown Uncoded 07/30/24 14:32 Levaquin Allergy Unknown Unknown Uncoded 07/30/24 14:32 METOCLOPRAMIDE HCL Allergy Unknown Unknown Uncoded 07/30/24 14:32 Motrin IB Allergy Unknown Unknown Uncoded 07/30/24 14:32 Naprosyn Allergy Unknown Unknown Uncoded 07/30/24 14:32 Nasonex Allergy Unknown Unknown Uncoded 07/30/24 14:32 Paxil Allergy Unknown Unknown Uncoded 07/30/24 14:32 Prozac Allergy Unknown Unknown Uncoded 07/30/24 14:32 Reglan Allergy Unknown Unknown Uncoded 07/30/24 14:32 Savella Allergy Unknown Unknown Uncoded 07/30/24 14:32 Tequin Allergy Unknown Unknown Uncoded 07/30/24 14:32 Vesicare Allergy Unknown Unknown Uncoded 07/30/24 14:32 Wellbutrin Allergy Unknown Unknown Uncoded 07/30/24 14:32 Xarelto Allergy Unknown Unknown Uncoded 07/30/24 14:32 Zoloft Allergy Unknown Unknown Uncoded 07/30/24 14:32 Zyrtec Allergy Unknown Unknown Uncoded 07/30/24 14:32 Review of Systems 2 Review of Systems: As reviewed above in [facility] Past Medical History Medical History Complex regional pain syndrome Breast cancer Iron deficiency anemia Irritable bowel GERD (gastroesophageal reflux disease) Essential hypertension Diabetic neuropathy Stroke Chronic left sided weakness and numbness Fibromyalgia Diabetes Surgical History Surgical History History of bilateral mastectomy History of left hip replacement Status post insertion of spinal cord stimulator Pacemaker Left chest placed 2021 H/O cataract extraction Hx of cholecystectomy H/O: hysterectomy History of tonsillectomy Family History Family History Father Family history of emphysema Acute myocardial infarction, Onset Age: 72 , Onset Age: 72 Mother Multiple myeloma, Onset Age: 92 , Onset Age: 92 Other Family history of malignant neoplasm Social History Social History Social History: Patient has been since 2020. She lives in her own home. Her only son comes and checks on her 3 or 4 times a week. 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 She uses a wheelchair and can ambulate short distances with a walker. Code status: DNR/DNI per patient request Surrogate decision maker: Caleb (son) Smoking status: Never smoker Alcohol intake: never Substance use: never Lack of Transportation: No Lack of Food: Never True Current Housing: I Have Housing Concerned About Future Housing: No Difficulty Paying Gas/Electric Bills: No Difficulty Paying for Meds: No Currently Unemployed: No Education: Bachelor's Degree Difficulty w/ Childcare or Family Care: No Spiritual care concerns: No Exam 2 Narrative: GENERAL: Chronically ill-appearing, very dehydrated, not any acute distress HEAD: [Normocephalic, atraumatic.] EYES: [PERRLA and EOMI.] ENT: Nares clear, no rhinorrhea or epistaxis. Dry tacky lips, dry mucous membranes and atrophied tongue NECK: Supple. CHEST: [Clear to auscultation. No respiratory distress.] HEART: [Regular rate and rhythm]. No murmur heard. [Normal peripheral pulses.] ABDOMEN: [Soft, nondistended], [nontender], [No rigidity or guarding] EXTREMITIES: Normal range of motion. [No edema.] SKIN: Warm, dry, no rash. NEURO: No new or obvious focal deficits aside from her chronic left-sided hemiparesis, alert oriented x3. Able to move her right upper extremity right lower extremity easily. No facial asymmetry. Pupils are equal reactive to light. PSYCH: [Normal mood and affect.] Course Vital Signs Vital signs: Vital Signs Temperature 36.3 C L 07/30/24 14:16 Pulse Rate 81 07/30/24 14:16 Respiratory Rate 18 07/30/24 14:16 Blood Pressure 154/91 H 07/30/24 14:16 Pulse Oximetry 96 07/30/24 14:16 Oxygen Delivery Room Air 07/30/24 14:16 Temperature 36.3 C L 07/30/24 14:16 Pulse Rate 84 07/30/24 18:20 Respiratory Rate 18 07/30/24 18:20 Blood Pressure 161/63 H 07/30/24 18:20 Pulse Oximetry 98 07/30/24 18:20 Oxygen Delivery Room Air 07/30/24 14:16 MDM - Syncope MDM Narrative Medical decision making narrative: 74-year-old female with history of hypertension, diabetes, hyperlipidemia, generalized weakness, stroke with residual left-sided deficits. She has a pacemaker and nerve stimulator as well. Presents to the ED today after a syncope versus presyncope event while trying to get off the commode. She did not fall or hit her head, not any blood thinner medications. She states that she is generally weak and dehydrated. She does have very dry mucous membranes on examination with tenting of the skin on exam. She states she has not been able to eat or drink anything and states she presently feels nauseous. Her vital signs showed no significant blood pressure concerns, no tachycardia, fever, hypoxia or tachypnea. She is chronically ill-appearing. Considerations presently are for intravascular volume depletion and profound dehydration that may have led to her presyncope versus syncope event. She has significant comorbidities and cardiac etiology needs to be excluded. Suspicion for stroke is low but will obtain CT head images at this time as well as cardiac workup, troponin, EKG, chest x-ray, electrolyte panel, CBC. She was given 2 L of hydration and Zofran for nausea. Patient has a leukocytosis of 19.3, normal hemoglobin, normal platelet count. Electrolytes within normal limits, creatinine is 0.62 and in line with her baseline. Negative troponin, negative lactic acid, normal CMP. Awaiting UA to see if infected. Patient was re-evaluated after fluid boluses and she looked improved and states she felt a lot better. Still slightly dehydrated in appearance and noted on her blood work she was hyperglycemic with blood sugars in the 400 range and only slightly decreased at 357 after fluids. I went and spoke to the patient and she states that she was previously on insulin but her PA took her off of this medication and only kept her on metformin as she has been doing well apparently. I discussed the need for potential re-initiation of her insulin therapy. She has no anion gap acidosis, added on a beta hydroxybutyrate level and will evaluate if she needs any kind of IV insulin at this time. Patient started complaining of a sore throat as well even though she tested negative for COVID fluid RSV. We added on a strep test. Still awaiting UA. Patient tested negative for strep, tested positive for urinary tract infection with florid signs of UTI on her urinalysis. Started on Rocephin based on previous culture showing pansensitive E coli. Patient was re-evaluated once again, states she is still feeling dehydrated and was started on maintenance fluids at this time. Does have a slight ketosis but no evidence of diabetic ketoacidosis likely component of starvation ketosis. Will give 8 units of lispro in addition to her fluids. Given her leukocytosis, profound dehydration with vomiting, hyperglycemia with lack of appropriate control on outpatient therapy, and her urinary tract infection she would benefit from admission to the hospital at this time. Awaiting call from hospitalist to discuss. I spoke with the hospitalist Dr. Brink who accepted the patient to a medical- surgical bed at this time. Medical Records Attestation: I reviewed the patient's medical records. Lab Data Attestation: I reviewed the patient's lab results. 07/30/24 15:59 07/30/24 15:59 Labs: Lab Results 07/30/24 07/30/24 07/30/24 Range/Units 15:59 18:24 19:38 WBC 19.3 H (4.5-10.0) K/mm3 RBC 4.39 (4.2-5.4) M/mm3 Hgb 13.6 (12.0-15.0) g/dL Hct 41.9 (37.0-47.0) % MCV 95.4 (80-100) fl MCH 31.0 (26-34) pg MCHC 32.5 (32-36) g/dl RDW 11.8 (11.5-14.5) % Plt Count 188 (150-375) k/mm3 MPV 10.6 H (7.4-10.4) fl Immature Gran % (Auto) 2.4 H (0-0.5) % Neut % (Auto) 80.0 H (45.5-73.1) % Lymph % (Auto) 8.4 L (18.3-44.2) % [place] % (Auto) 8.4 (2.6-8.5) % Eos % (Auto) 0.1 (0-4.4) % Baso % (Auto) 0.7 (0.2-1.2) % Lymph # (Auto) 1.61 (0.9-3.2) K/mm3 [place] # (Auto) 1.6 H (0.1-0.6) K/mm3 Eos # (Auto) 0.0 (0-0.3) K/mm3 Baso # (Auto) 0.1 (0.0-0.1) K/mm3 Abs Immat Gran (auto) 0.47 H (0.00-0.031) K/mm3 Absolute Neuts (auto) 15.4 H (1.3-6.7) K/mm3 Absolute Nucleated RBC 0.000 (0.0-0.012) K/mm3 Nucleated RBC % 0.0 (0.0-0.2) % PT 14.4 (11.1-14.7) Seconds INR 1.1 APTT < 20.0 L (22.3-36.8) Seconds Sodium 133 L (137-145) mmol/L Potassium 4.8 (3.4-5.0) mmol/L Chloride 100 (98-107) mmol/L Carbon Dioxide 21 L (22-30) mmol/L Anion Gap 12 (4-12) mmol/L BUN 18 H (7-17) mg/dL Creatinine 0.62 L (0.7-1.0) mg/dL Estim Creat Clear Calc 64 ml/min Estimated GFR > 60 (59 - ) Glucose 437 H (65-110) mg/dL POC Capillary Glucose 357 H (65-105) mg/dl Lactic Acid 1.5 (0.7-2.0) mmol/L Calcium 9.8 (8.4-10.2) mg/dL Magnesium 1.9 (1.6-2.3) mg/dL Total Bilirubin 0.7 (0.2-1.3) mg/dL AST 23 (14-36) U/L ALT 21 (6-35) U/L Alkaline Phosphatase 126 (38-126) U/L Troponin I 0.018 (0.000-0.034) ng/mL Total Protein 7.0 (6.3-8.2) g/dL Albumin 3.9 (3.5-5.1) g/dL Beta-Hydroxybutyrate/Acetoacetate Pending Urine Color (Yellow) Urine Appearance (Clear) Urine pH (5.0-9.0) Ur Specific [place] (1.001-1.035) Urine Protein (Negative) mg/dL Urine Glucose (UA) (Negative) mg/dL Urine Ketones (Negative) mg/dL Ur Blood (Man) (Negative) Urine Nitrate (Negative) Urine Bilirubin (Negative) Urine Urobilinogen (<2.0) mg/dL Add Ur Microanalysis Leukocyte Esterase Rfl (Negative) LINDA/UL Urine RBC (0-2) /hpf Urine WBC (0-3) /hpf Ur Squamous Epith Cells (Few) /hpf Urine Bacteria /hpf Urine Casts Urine Yeast (Budding) (None) /hpf Influenza A (RT-PCR) Negative (Negative) Influenza B (RT-PCR) Negative (Negative) RSV (RT-PCR) Negative (Negative) SARS-CoV-2 RNA (RT-PCR) Negative (Negative) Group A Strep (PCR) Not detected (Negative) Blood Type O Negative Antibody Screen Negative 07/30/24 Range/Units 20:08 WBC (4.5-10.0) K/mm3 RBC (4.2-5.4) M/mm3 Hgb (12.0-15.0) g/dL Hct (37.0-47.0) % MCV (80-100) fl MCH (26-34) pg MCHC (32-36) g/dl RDW (11.5-14.5) % Plt Count (150-375) k/mm3 MPV (7.4-10.4) fl Immature Gran % (Auto) (0-0.5) % Neut % (Auto) (45.5-73.1) % Lymph % (Auto) (18.3-44.2) % [place] % (Auto) (2.6-8.5) % Eos % (Auto) (0-4.4) % Baso % (Auto) (0.2-1.2) % Lymph # (Auto) (0.9-3.2) K/mm3 [place] # (Auto) (0.1-0.6) K/mm3 Eos # (Auto) (0-0.3) K/mm3 Baso # (Auto) (0.0-0.1) K/mm3 Abs Immat Gran (auto) (0.00-0.031) K/mm3 Absolute Neuts (auto) (1.3-6.7) K/mm3 Absolute Nucleated RBC (0.0-0.012) K/mm3 Nucleated RBC % (0.0-0.2) % PT (11.1-14.7) Seconds INR APTT (22.3-36.8) Seconds Sodium (137-145) mmol/L Potassium (3.4-5.0) mmol/L Chloride (98-107) mmol/L Carbon Dioxide (22-30) mmol/L Anion Gap (4-12) mmol/L BUN (7-17) mg/dL Creatinine (0.7-1.0) mg/dL Estim Creat Clear Calc ml/min Estimated GFR (59 - ) Glucose (65-110) mg/dL POC Capillary Glucose (65-105) mg/dl Lactic Acid (0.7-2.0) mmol/L Calcium (8.4-10.2) mg/dL Magnesium (1.6-2.3) mg/dL Total Bilirubin (0.2-1.3) mg/dL AST (14-36) U/L ALT (6-35) U/L Alkaline Phosphatase (38-126) U/L Troponin I (0.000-0.034) ng/mL Total Protein (6.3-8.2) g/dL Albumin (3.5-5.1) g/dL Beta-Hydroxybutyrate/Acetoacetate Urine Color Yellow (Yellow) Urine Appearance Clear (Clear) Urine pH 5.0 (5.0-9.0) Ur Specific [place] 1.029 (1.001-1.035) Urine Protein Negative (Negative) mg/dL Urine Glucose (UA) 3+ H (Negative) mg/dL Urine Ketones 4+ H (Negative) mg/dL Ur Blood (Man) Negative (Negative) Urine Nitrate Positive H (Negative) Urine Bilirubin Negative (Negative) Urine Urobilinogen 0.2 (<2.0) mg/dL Add Ur Microanalysis Reviewed Leukocyte Esterase Rfl Negative (Negative) LINDA/UL Urine RBC 0-2 (0-2) /hpf Urine WBC 21-50 H (0-3) /hpf Ur Squamous Epith Cells None seen (Few) /hpf Urine Bacteria 4+ H /hpf Urine Casts 0-2 Urine Yeast (Budding) Present H (None) /hpf Influenza A (RT-PCR) (Negative) Influenza B (RT-PCR) (Negative) RSV (RT-PCR) (Negative) SARS-CoV-2 RNA (RT-PCR) (Negative) Group A Strep (PCR) (Negative) Blood Type Antibody Screen Imaging Data Attestation: I personally reviewed and interpreted this imaging study as follows: My impression: Impressions Chest X-Ray 07/30/24 15:20 IMPRESSION: No focal infiltrate or effusion. Head CT 07/30/24 15:39 IMPRESSION: 1. Old infarct involving the right basal ganglia, right internal capsule, and right frontoparietal garcia radiata. 2. Stable moderate nonspecific cerebral white matter disease, which likely represents chronic small vessel ischemic disease. Critical Care Time Critical Care Time Critical Care Time: Yes Total Critical Care Time: 35 Discharge Plan Discharge Clinical Impression: Urinary tract infection, Acute dehydration, Starvation ketoacidosis, Hyperglycemia, History of stroke Patient Disposition: Still a Patient Condition: Stable Patient Language: [place] Citizen Prescriptions: No Action atorvastatin 80 mg tablet 80 mg PO DAILY Centrum Silver Women 8 mg iron-400 mcg-300 mcg tablet 1 tablet PO DAILY metformin 850 mg tablet 212.5 mg PO BID acetaminophen [Tylenol Extra Strength] 500 mg tablet 1,000 mg PO QAM AND QPM lisinopril 40 mg tablet 40 mg PO DAILY dextromethorphan-guaifenesin [Mucinex DM] 60-1,200 mg tablet extended release 12 hr 1 tablet PO Q12H calcium carbonate [Tums] 300 mg (750 mg) Tablet,Chewable 300 mg PO BID PRN (Reason: Dyspepsia) pantoprazole 40 mg tablet,delayed release (DR/EC) 40 mg PO DAILY hydralazine 50 mg tablet 50 mg PO TID cholecalciferol (vitamin D3) [Vitamin D3] 125 mcg (5,000 unit) Tablet 125 mcg PO DAILY diphenhydramine HCl 12.5 mg/5 mL Prefilled Spoon 25 mg PO HS naproxen sodium [Aleve] 220 mg Capsule 220 mg PO BID PRN (Reason: Mild Pain (Scale Score 1-4)) Rolo Cough Drops 3.2 mg Lozenge 6.4 mg MUCOUS MEMBRANE Q2-4H PRN (Reason: Cough) lidocaine HCl [Aspercreme (lidocaine HCl)] 4 % Cream 1 applic TOPICAL QID PRN (Reason: Muscle Pain) Azo Bladder Control 300 mg Capsule 1 cap PO DAILY clonazepam 0.5 mg tablet 0.125 mg PO HS Follow-up/Referrals: Júnior,NUNO Moreno [Primary Care Provider] - Time of Disposition: 22:02
[2024-07-30 16:08] LABS: Basophils Absolute Auto 0.1 K/mm3 (0.0-0.1); Basophils Percent Auto 0.7 % (0.2-1.2); Eosinophils Percent Auto 0.1 % (0-4.4); Hematocrit 41.9 % (37.0-47.0); Hemoglobin 13.6 g/dL (12.0-15.0); Immature Granulocyte Absolute 0.47 K/mm3 (0.00-0.031); Immature Granulocyte Percent A 2.4 % (0-0.5); Lymphocytes Absolute Auto 1.61 K/mm3 (0.9-3.2); Lymphocytes Percent Auto 8.4 % (18.3-44.2); Mean Corpuscular HGB Conc 32.5 g/dl (32-36); Mean Corpuscular Volume 95.4 fl (80-100); Mean Platelet Volume 10.6 fl (7.4-10.4); Monocytes Absolute Auto 1.6 K/mm3 (0.1-0.6); Monocytes Percent Auto 8.4 % (2.6-8.5); Neutrophils Absolute Auto 15.4 K/mm3 (1.3-6.7); Platelet Count Result 188 k/mm3 (150-375); Red Blood Count 4.39 M/mm3 (4.2-5.4); Red Cell Distribution Width 11.8 % (11.5-14.5); White Blood Count 19.3 K/mm3 (4.5-10.0)
[2024-07-30 16:33] LABS: Alanine Aminotransferase 21 U/L (6-35); Albumin Level 3.9 g/dL (3.5-5.1); Alkaline Phosphatase 126 U/L (38-126); Anion Gap 12 mmol/L (4-12); Aspartate Amino Transferase 23 U/L (14-36); Bilirubin,Total 0.7 mg/dL (0.2-1.3); Blood Urea Nitrogen 18 mg/dL (7-17); Calcium 9.8 mg/dL (8.4-10.2); Carbon Dioxide 21 mmol/L (22-30); Chloride 100 mmol/L (98-107); Estimated CRCL calculation 64 ml/min; Estimated Glomerular Filt Rate > 60; Glucose 437 mg/dL (65-110); Lactic Acid Reflex 1.5 mmol/L (0.7-2.0); Magnesium 1.9 mg/dL (1.6-2.3); Potassium 4.8 mmol/L (3.4-5.0); Sodium 133 mmol/L (137-145)
[2024-07-30 16:45] LABS: Influenza A QL RT-PCR Negative (Negative); Influenza B QL RT-PCR Negative (Negative); RSV RNA, RT-PCR Negative (Negative); SARS-CoV-2 RNA PCR Negative (Negative)
[2024-07-30 16:52] LABS: Troponin I 0.018 ng/mL (0.000-0.034)
[2024-07-30] MEDS: SODIUM CHLORIDE 0.9% IV 2,000 ML 999 ML IV CONT (17:19)
[2024-07-30] MEDS: ONDANSETRON INJ 4 MG/2 ML VIAL IV PUSH (17:19)
[2024-07-30 18:10] LABS: INR 1.1; Prothrombin Time 14.4 Seconds (11.1-14.7)
[2024-07-30 18:20] VITALS: BP 161/63; PULSE 84; RESP 18; O2SAT 98
[2024-07-30 18:23] LABS: Partial Thromboplastin Time < 20.0 Seconds (22.3-36.8)
[2024-07-30 18:29] LABS: Glucose Point of Care 357 mg/dl (65-105)
--- NOTE | 2024-07-30 18:58 | PC.NURSE ---
Attempted to get urine sample pt missed bed de souza.
[2024-07-30] MEDS: SODIUM CHLORIDE 0.9% IV 1,000 ML 999 ML IV CONT (20:08)
[2024-07-30 20:15] LABS: Strep Group A RT-PCR NOT DETECTED (Negative)
[2024-07-30 20:56] LABS: Add Urine Microscopic? YES; Appearance Urine Clear (Clear); Bacteria Urine 4+ /hpf; Bilirubin Urine Negative (Negative); Blood Urine Negative (Negative); Budding Yeast Urine Present /hpf; Color Urine Yellow (Yellow); Glucose Urine UA 3+ mg/dL (Negative); Ketones Urine 4+ mg/dL (Negative); Leukocyte Esterase Ur Negative LEU/UL (Negative); Need Manual Microscopic Reviewed; Nitrate Urine Positive (Negative); Non Pathogenic Casts 0-2; Protein Urine Negative (Negative); RBC Urine 0-2 /hpf (0-2); Specific Grav Ur 1.029 (1.001-1.035); Squamous Epithelial Cell Urine None Seen /hpf (Few); Urobilinogen Urine 0.2 mg/dL (<2.0); WBC Urine 21-50 /hpf (0-3)
[2024-07-30 21:42] LABS: Beta-Hydroxybutyrate/Acetoacetate 5.42 mmol/L (0.02-0.27)
[2024-07-30 22:12] LABS: Glucose Point of Care 282 mg/dl (65-105)
[2024-07-30] MEDS: cefTRIAXone 2 GM/NS 100 ML 2 GM/100 ML BAG IVPB (22:26)
[2024-07-30] MEDS: INSULIN ASPART (*BKC) 100 UNITS/ML 8 UNITS SUB-Q (22:27)
[2024-07-30 22:54] VITALS: BP 150/77; PULSE 80; RESP 20; TEMP 36.8; O2SAT 100
[2024-07-30 23:00] LABS: Glucose Point of Care 287 mg/dl (65-105)
[2024-07-30 23:49] VITALS: BMI 26.6
--- NOTE | 2024-07-30 23:50 | ADMGEN ---
This patient, Sho Mabry, was admitted to Medical Room 247-. Patient/family oriented to hospital policies and general routines including ID bracelet, bed and alarms, visiting hours, pain management, procedures, bathroom and other care routines, personal items, smoking policy, room service/diet, and visiting hours. Information on how to activate the Rapid Response Team has been discussed. Patient/Family are encouraged to report perceived risks to care and to ask questions if they do not understand what they are told or what they should do.
[2024-07-31] VITALS (7 sets, daily range): BP systolic 111–132; BP diastolic 49–66; PULSE 65–83; RESP 18–20; TEMP 36.7–37; O2SAT 97–99
--- NOTE | 2024-07-31 00:12 | PC.NURSE ---
Pt does not know her medications. Son Lei has a list at her house and will bring in medication list in the morning.
[2024-07-31] MEDS: LACTATED RINGERS 1,000 ML 110 ML IV CONT (00:15)
[2024-07-31 08:04] LABS: Fractional Inspired Oxygen 21 %; HCO3 VBG 21.1 mEq/l (24.0-30.0); PCO2 VBG 34.1 mmHg (42.0-48.0); PO2 VBG 34.9 mmHg (35.0-45.0)
[2024-07-31 08:07] LABS: Device ROOM AIR
[2024-07-31 08:31] LABS: Basophils Absolute Auto 0.1 K/mm3 (0.0-0.1); Basophils Percent Auto 0.4 % (0.2-1.2); Eosinophils Absolute Auto 0.1 K/mm3 (0-0.3); Eosinophils Percent Auto 0.5 % (0-4.4); Hematocrit 34.2 % (37.0-47.0); Immature Granulocyte Absolute 0.16 K/mm3 (0.00-0.031); Immature Granulocyte Percent A 1.2 % (0-0.5); Immature Platelet Fraction Pct 8.4 % (0.9-11.2); Lymphocytes Absolute Auto 2.55 K/mm3 (0.9-3.2); Lymphocytes Percent Auto 19.3 % (18.3-44.2); Mean Corpuscular HGB Conc 32.2 g/dl (32-36); Mean Corpuscular Hemoglobin 31.9 pg (26-34); Mean Corpuscular Volume 99.1 fl (80-100); Mean Platelet Volume 11.7 fl (7.4-10.4); Monocytes Percent Auto 7.2 % (2.6-8.5); Neutrophils Absolute Auto 9.4 K/mm3 (1.3-6.7); Neutrophils Percent Auto 71.4 % (45.5-73.1); Platelet Count Result 133 k/mm3 (150-375); Red Blood Count 3.45 M/mm3 (4.2-5.4); White Blood Count 13.2 K/mm3 (4.5-10.0)
[2024-07-31 08:47] LABS: Glucose Point of Care 241 mg/dl (65-105)
[2024-07-31 08:47] LABS: Alanine Aminotransferase 16 U/L (6-35); Albumin Level 2.8 g/dL (3.5-5.1); Alkaline Phosphatase 76 U/L (38-126); Anion Gap 3 mmol/L (4-12); Aspartate Amino Transferase 22 U/L (14-36); Bilirubin,Total 0.5 mg/dL (0.2-1.3); Blood Urea Nitrogen 11 mg/dL (7-17); Calcium 8.6 mg/dL (8.4-10.2); Carbon Dioxide 21 mmol/L (22-30); Chloride 109 mmol/L (98-107); Estimated CRCL calculation 88 ml/min; Estimated Glomerular Filt Rate > 60; Glucose 205 mg/dL (65-110); Magnesium 1.7 mg/dL (1.6-2.3); Potassium 4.4 mmol/L (3.4-5.0); Sodium 133 mmol/L (137-145)
[2024-07-31 08:50] LABS: Beta-Hydroxybutyrate/Acetoacetate 2.37 mmol/L (0.02-0.27)
[2024-07-31] MEDS: LACTATED RINGERS 1,000 ML 100 ML IV CONT ×2 (09:04→17:31)
[2024-07-31] MEDS: INSULIN ASPART (*BKC) 100 UNITS/ML SUB-Q ×3 (09:04→17:30)
[2024-07-31] MEDS: PANTOPRAZOLE SODIUM IV 40 MG VIAL IV PUSH (10:04)
[2024-07-31] MEDS: ONDANSETRON INJ 4 MG/2 ML VIAL IV PUSH (10:04)
[2024-07-31] MEDS: MAG HYDROX/AL HYDROX/SIMETH 30 ML UDC PO (10:04)
--- NOTE | 2024-07-31 10:05 | PM.IMHP ---
H&P: HPI History of Present Illness Date/Time: 07/31/24 10:05 Chief Complaint: Syncope Narrative: 74-year-old female with a past medical history including diabetes, hypertension, hyperlipidemia, GERD, anxiety, chronic weakness and residual left-sided janice deficits from prior stroke. She has a nerve stimulator (battery pack previously removed) and pacemaker. Patient admitted for a syncopal event. Patient states that she felt lightheaded and ?dizzy she was trying to use the commode and get up off of the commode she felt significantly worse and had to lie back down. she reports that she could not process what was being said to her and she had a hard time responding as well but she remembers being awake with people talking to her. patient reports she has not been eating or drinking very well for the last 2 weeks because it hurts on the left side of her neck to swallow. Patient lives alone. Her son is present at bedside and states that she has not been eating or drinking and is very dehydrated. son also verifies that patient had garbled mumbled speech yesterday but is speaking normally today. Patient does not take aspirin or blood thinners even though she has a history of prior stroke. She is on atorvastatin. She has had previous admissions to this facility for generalized weakness with workup showing urinary infections. patient reports that when she tried to stand up with therapy she was still unable to stand on her own which is unusual for her. Workup in the emergency department showed Elevated white blood cell count of 19.3 and abnormal urinalysis with concern for recurrent UTI. Patient started on Rocephin after reviewing prior urine culture results. Serum glucose was elevated at 437 and beta hydroxybutyrate was elevated though this was felt to be starvation ketosis rather than diabetic ketoacidosis. This has improved from 5.42 down 2.3 7 with IV fluids. Anion gap has also gone from 12 to 3 with IV fluids. patient had negative strep negative viral panel in the emergency department. Review of Systems Review of Systems: All systems reviewed & are unremarkable except as noted in HPI and below PMFSH Past Medical History Medical History Complex regional pain syndrome Breast cancer Iron deficiency anemia Irritable bowel GERD (gastroesophageal reflux disease) Essential hypertension Diabetic neuropathy Stroke Chronic left sided weakness and numbness Fibromyalgia Diabetes Surgical History Surgical History History of bilateral mastectomy History of left hip replacement Status post insertion of spinal cord stimulator Pacemaker Left chest placed 2021 H/O cataract extraction Hx of cholecystectomy H/O: hysterectomy History of tonsillectomy Family History Family History Father Family history of emphysema Acute myocardial infarction, Onset Age: 72 , Onset Age: 72 Mother Multiple myeloma, Onset Age: 92 , Onset Age: 92 Other Family history of malignant neoplasm Social History Social History Social History: Patient has been since 2020. She lives in her own home. Her only son comes and checks on her 3 or 4 times a week. 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 She uses a wheelchair and can ambulate short distances with a walker. Code status: DNR/DNI per patient request Surrogate decision maker: Caleb (son) Smoking status: Never smoker Alcohol intake: never Substance use: never Substance use type: does not use Do You Feel Safe in your Home?: Yes Lack of Transportation: No Lack of Food: Never True Current Housing: I Have Housing Concerned About Future Housing: No Difficulty Paying Gas/Electric Bills: No Difficulty Paying for Meds: No Currently Unemployed: No Education: Bachelor's Degree Difficulty w/ Childcare or Family Care: No Spiritual care concerns: No Meds Home Medications and Allergies Home Medications ?Medication ?Instructions ?Recorded ?Confirmed ?Type acetaminophen 500 mg tablet 1,000 mg PO QAM AND QPM 11/03/20 05/21/23 History (Tylenol Extra Strength) atorvastatin 80 mg tablet 80 mg PO DAILY 11/03/20 05/21/23 History metformin 850 mg tablet 212.5 mg PO BID 11/03/20 05/21/23 History kbytbjdq-gbgl-tlsw 8 mg-folic 400 1 tablet PO DAILY 11/03/20 05/21/23 History mcg-K 50 mcg-lutein 300 mcg tablet (Centrum Silver Women) dextromethorphan-guaifenesin ER 60 1 tablet PO Q12H 06/30/22 05/21/23 History mg-1,200 mg tab,extend release,12hr (Mucinex DM) lisinopril 40 mg tablet 40 mg PO DAILY 06/30/22 07/31/24 History calcium carbonate (Tums) 300 mg PO BID PRN Dyspepsia 05/21/23 05/21/23 History cholecalciferol (vitamin D3) 125 125 mcg PO DAILY 05/21/23 05/21/23 History mcg (5,000 unit) tablet (Vitamin D3) clonazepam 0.5 mg tablet 0.125 mg PO HS 05/21/23 05/21/23 History diphenhydramine HCl 12.5 mg/5 mL 25 mg PO HS 05/21/23 05/21/23 History prefilled spoon hydralazine 50 mg tablet 50 mg PO TID 05/21/23 07/31/24 History lidocaine HCl 4 % topical cream 1 applic topical QID PRN Muscle 05/21/23 05/21/23 History (Aspercreme (lidocaine HCl)) Pain menthol 3.2 mg lozenges ([place] 6.4 mg mucous membrane Q2-4H PRN 05/21/23 05/21/23 History Cough Drops) Cough naproxen sodium 220 mg capsule 220 mg PO BID PRN Mild Pain (Scale 05/21/23 05/21/23 History (Aleve) Score 1-4) pantoprazole 40 mg tablet,delayed 40 mg PO DAILY 05/21/23 07/31/24 History release pumpkin seed extract-soy germ 300 1 cap PO DAILY 05/21/23 05/21/23 History mg capsule (Azo Bladder Control) Allergies Allergy/AdvReac Type Severity Reaction Status Date / Time amitriptyline Allergy Mild Unknown Verified 07/30/24 17:12 baclofen Allergy Mild Unknown Verified 07/30/24 17:12 budesonide Allergy Mild Unknown Verified 07/30/24 17:12 carbamazepine Allergy Mild Unknown Verified 07/30/24 17:12 ciprofloxacin Allergy Mild Unknown Verified 07/30/24 17:12 doxycycline Allergy Mild Unknown Verified 07/30/24 17:12 erythromycin base Allergy Mild Unknown Verified 07/30/24 17:12 gabapentin Allergy Mild Unknown Verified 07/30/24 17:12 gatifloxacin Allergy Mild Unknown Verified 07/30/24 17:12 ibuprofen Allergy Mild Unknown Verified 07/30/24 17:12 lithium Allergy Mild Unknown Verified 07/30/24 17:12 metronidazole Allergy Mild Unknown Verified 07/30/24 17:12 mometasone furoate Allergy Mild Unknown Verified 07/30/24 17:12 nortriptyline Allergy Mild Unknown Verified 07/30/24 17:12 Penicillins Allergy Mild Unknown Verified 07/30/24 17:12 prednisone Allergy Mild Unknown Verified 07/30/24 17:12 pregabalin Allergy Mild Unknown Verified 07/30/24 17:12 tramadol Allergy Mild Unknown Verified 07/30/24 17:12 bupropion Allergy Unknown Unknown Verified 07/31/24 07:52 buspirone Allergy Unknown Unknown Verified 07/31/24 07:52 cephalexin Allergy Unknown Unknown Verified 07/31/24 07:38 cetirizine Allergy Unknown Unknown Verified 07/31/24 07:38 duloxetine Allergy Unknown Unknown Verified 07/31/24 07:52 fentanyl Allergy Unknown Unknown Verified 07/30/24 17:12 fluoxetine Allergy Unknown Unknown Verified 07/31/24 07:52 hydrocodone Allergy Unknown Unknown Verified 07/30/24 17:12 levofloxacin Allergy Unknown Unknown Verified 07/31/24 07:52 metoclopramide Allergy Unknown Unknown Verified 07/31/24 07:52 milnacipran Allergy Unknown Unknown Verified 07/30/24 17:12 naproxen (From Naprosyn) Allergy Unknown Unknown Verified 07/31/24 07:38 oxybutynin Allergy Unknown Unknown Verified 07/31/24 07:52 paroxetine Allergy Unknown Unknown Verified 07/31/24 07:52 rivaroxaban Allergy Unknown Unknown Verified 07/31/24 07:52 sertraline Allergy Unknown Unknown Verified 07/31/24 07:52 solifenacin Allergy Unknown Unknown Verified 07/31/24 07:56 theophylline Allergy Unknown Unknown Verified 07/31/24 07:52 tolterodine Allergy Unknown Unknown Verified 07/31/24 07:52 triamcinolone Allergy Unknown Unknown Verified 07/31/24 07:56 [id number] Allergy Unknown Unknown Uncoded 07/30/24 14:32 Vital Signs Vital Signs - 24 hr 07/30/24 14:16 07/30/24 18:20 07/30/24 22:54 Temperature 36.3 C L 36.8 C Pulse Rate 81 84 80 Respiratory Rate 18 18 20 Blood Pressure 154/91 H 161/63 H 150/77 H Pulse Oximetry 96 98 100 Oxygen Delivery Room Air 07/31/24 00:00 07/31/24 00:25 07/31/24 06:00 Temperature 37.0 C 36.8 C Pulse Rate 83 69 Respiratory Rate 20 20 Blood Pressure 129/57 L 132/52 L Pulse Oximetry 97 97 Oxygen Delivery Room Air Exam Narrative: GENERAL: dry mucous membranes, no acute distress HEAD: Normocephalic, atraumatic. ENT:? Mucous membranes dry. CHEST: Clear to auscultation.? No respiratory distress. HEART: Regular rate and rhythm. ? Normal peripheral pulses. ABDOMEN: Soft, nontender, nondistended. EXTREMITIES: Normal range of motion. No peripheral edema. SKIN: Warm dry normal color NEURO: Alert and oriented x3. Residual left arm/leg weakness, no slurred speech at this time, no facial droop. PSYCH: Normal mood and affect H&P: Results Labs Labs: Short CBC 07/30/24 07/31/24 Range/Units 15:59 08:01 WBC 19.3 H 13.2 H (4.5-10.0) K/mm3 Hgb 13.6 11.0 L (12.0-15.0) g/dL Hct 41.9 34.2 L (37.0-47.0) % Plt Count 188 133 L (150-375) k/mm3 BMP 07/30/24 07/31/24 15:59 07:50 Sodium 133 L 133 L Potassium 4.8 4.4 Chloride 100 109 H Carbon Dioxide 21 L 21 L BUN 18 H 11 D Creatinine 0.62 L 0.43 L Glucose 437 H 205 H Calcium 9.8 8.6 Cardiac Enzymes 07/30/24 Range/Units 15:59 Troponin I 0.018 (0.000-0.034) ng/mL Liver Function 07/30/24 07/31/24 Range/Units 15:59 07:50 Total Bilirubin 0.7 0.5 (0.2-1.3) mg/dL AST 23 22 (14-36) U/L ALT 21 16 (6-35) U/L Alkaline Phosphatase 126 76 (38-126) U/L Albumin 3.9 2.8 L (3.5-5.1) g/dL Urine 07/30/24 Range/Units 20:08 Urine Color Yellow (Yellow) Urine Appearance Clear (Clear) Urine pH 5.0 (5.0-9.0) Ur Specific [place] 1.029 (1.001-1.035) Urine Protein Negative (Negative) mg/dL Urine Glucose (UA) 3+ H (Negative) mg/dL Pulse Oximetry SpO2 results: 97-100% on room air Attestation: I personally reviewed and interpreted this pulse oximetry as follows: Interpretation: no need for supplemental oxygenation at this time ECG Attestation: I personally reviewed and interpreted this ECG as follows: ECG completion date: 07/30/24 ECG completion time: 15:56 Prior ECG tracings: not available for review Interpretation: Ventricular paced rhythm rate of 88 PA 189 QRS duration [address] scan - head: Radiologist's impression: EXAMINATION: CT brain wo con DATE: 07/30/2024 15:38 INDICATION: Syncope. TECHNIQUE: Computed tomography (CT) of the head was performed without intravenous contrast. The mA was adjusted according to patient size. Iterative reconstruction technique was employed. The dose-length product was 605.33 mGy-cm. COMPARISON: Head CT 05/21/2023 FINDINGS: There is an old infarct involving the right basal ganglia, right internal capsule, and right frontoparietal garcia radiata. There are scattered areas of low attenuation in the cerebral white matter. There is no intracranial hemorrhage, acute infarction, or abnormal intracranial mass lesion. There is ex vacuo dilatation of body of right lateral ventricle. There are likely changes of ocular lens replacement surgeries. The paranasal sinuses are clear. The mastoid air cells are normal. IMPRESSION: 1. Old infarct involving the right basal ganglia, right internal capsule, and right frontoparietal garcia radiata. 2. Stable moderate nonspecific cerebral white matter disease, which likely represents chronic small vessel ischemic disease. Reviewed, dictated and finalized at location [facility]. [facility]NA[facility] Assessment and Plan Assessment and plan (1) Syncope and collapse: Code(s): R55 - Syncope and collapse Status: Acute Assessment and Plan: -Syncope with collapse onto her bed at home after urinating in bedside commode -Patient reports awake but unable to understand/respond correctly for EMS and on arrival to ER -[place] and responded better after IV fluids -Still difficulty standing today with PT eval -Usually able to walk 6-10 feet on her own (2) Acute dehydration: Code(s): E86.0 - Dehydration Status: Acute Assessment and Plan: -s/p fluid resuscitation in ER 2000 mL and IVF at 100 mL/hr -Continue fluids until 08/01/24 after EGD and tolerating diet (3) Acute UTI: Code(s): N39.0 - Urinary tract infection, site not specified Status: Acute Assessment and Plan: -UA in ER indicative of UTI -Prior culture driven use of Rocephin (4) Dysphagia: Code(s): R13.10 - Dysphagia, unspecified Status: Acute Assessment and Plan: -Patient reports sore on left side of throat for 2 weeks -Difficulty swallowing as a result -Also history of esophageal narrowing requiring dilation every 2 years -Prior done at clinic in [facility] ([facility]) by Dr. Allen about 2 years ago -patient felt like food stuck this morning with breakfast, got Maalox and IV Protonix with improvement -Full liquid diet, NPO at midnight -GI consulted, will EGD tomorrow -Patient may also need swallow study (5) Essential hypertension: Code(s): I10 - Essential (primary) hypertension Status: Acute Assessment and Plan: -BP soft -Hold lisinopril and hydralazine until BP is hypertensive (6) Type 2 diabetes mellitus with hyperglycemia, without long-term current use of insulin: Code(s): E11.65 - Type 2 diabetes mellitus with hyperglycemia Status: Acute Assessment and Plan: -On metformin at home -A1c high at 11.5 -ACHS fingerstick glucose with high dose SSI (7) History of stroke: Code(s): Z86.73 - Personal history of transient ischemic attack (TIA), and cerebral infarction without residual deficits Status: Acute Assessment and Plan: -Residual left sided weakness but usually able to ambulate 6-10 feet to use bedside commode -Dizzy with syncope on 07/30/24 -Still unable to stand on 07/31 with PT -Pacemaker and pain stimulator ernesto in place, unable to MRI -Dysphagia for 2 weeks -Will give 324 mg aspirin and order CTA head/neck in case this was a subsequent stroke causing new symptoms Plan Aspirin and Lovenox after EGD if ok with GI Quality VTE Prophylaxis VTE prophylaxis: mechanical ordered If No VTE Prophylaxis Answer both mechanical and pharmacologic: Reason no pharmacologic proph: medical contraindication (EGD planned 08/01/24, hold in case dilation needed) Hospitalist MIPS Advance Care Plan I have confirmed that the patient's Advanced Care Plan is present, code status is documented, or surrogate decision maker is listed in patient medical record.: Yes Medication Reconciliation I have utilized all available resources to obtain, update and review the patients current medications (includes all prescriptions, OTC, herbals, cannabis, and nutritional supplements).: Yes
[2024-07-31 10:46] LABS: Hemoglobin A1C 11.5 % (<5.7)
--- NOTE | 2024-07-31 11:44 | PCPTNOTE ---
bedrest orders removed, PT eval completed.
[2024-07-31 12:21] LABS: Glucose Point of Care 266 mg/dl (65-105)
--- NOTE | 2024-07-31 13:04 | P.CONGI_ITS ---
Assessment and Plan Assessment and plan (1) Dysphagia: Code(s): R13.10 - Dysphagia, unspecified Status: Acute Assessment and Plan: Patient with recurrent dysphagia to solids and liquids. Differential diagnosis includes Schatzki ring versus peptic stricture. Will perform EGD tomorrow morning. Will keep patient NPO after midnight. Liquid diet for now to avoid food impaction. GI Consult Note Consult date/time: 07/31/24 13:04 Reason for consult: dysphagia HPI: Sho Mabry is a 74 year old female admitted yesterday for a UTI and severe dehydration. There is a history of dysphagia, and apparently she has undergone periodic esophageal dilatation at another institution (records not available and patient does not remember details of place and the procedure itself). She states that the last session was about 2 years ago, after which she felt well. However, now she complaints of recurrent dysphagia to both solids and liquids for several months. Review of Systems 2 Review of Systems: All systems reviewed & are unremarkable except as noted in HPI and below PMFSH Past Medical History Medical History Complex regional pain syndrome Breast cancer Iron deficiency anemia Irritable bowel GERD (gastroesophageal reflux disease) Essential hypertension Diabetic neuropathy Stroke Chronic left sided weakness and numbness Fibromyalgia Diabetes Surgical History Surgical History History of bilateral mastectomy History of left hip replacement Status post insertion of spinal cord stimulator Pacemaker Left chest placed 2021 H/O cataract extraction Hx of cholecystectomy H/O: hysterectomy History of tonsillectomy Family History Family History Father Family history of emphysema Acute myocardial infarction, Onset Age: 72 , Onset Age: 72 Mother Multiple myeloma, Onset Age: 92 , Onset Age: 92 Other Family history of malignant neoplasm Social History Social History Social History: Patient has been since 2020. She lives in her own home. Her only son comes and checks on her 3 or 4 times a week. 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 She uses a wheelchair and can ambulate short distances with a walker. Code status: DNR/DNI per patient request Surrogate decision maker: Caleb (son) Smoking status: Never smoker Alcohol intake: never Substance use: never Substance use type: does not use Do You Feel Safe in your Home?: Yes Lack of Transportation: No Lack of Food: Never True Current Housing: I Have Housing Concerned About Future Housing: No Difficulty Paying Gas/Electric Bills: No Difficulty Paying for Meds: No Currently Unemployed: No Education: Bachelor's Degree Difficulty w/ Childcare or Family Care: No Spiritual care concerns: No Meds Home Medications and Allergies Home Medications ?Medication ?Instructions ?Recorded ?Confirmed ?Type acetaminophen 500 mg tablet 1,000 mg PO QAM AND QPM 11/03/20 05/21/23 History (Tylenol Extra Strength) atorvastatin 80 mg tablet 80 mg PO DAILY 11/03/20 05/21/23 History metformin 850 mg tablet 212.5 mg PO BID 11/03/20 05/21/23 History ipzoqypt-ucvu-wlgh 8 mg-folic 400 1 tablet PO DAILY 11/03/20 05/21/23 History mcg-K 50 mcg-lutein 300 mcg tablet (Centrum Silver Women) dextromethorphan-guaifenesin ER 60 1 tablet PO Q12H 06/30/22 05/21/23 History mg-1,200 mg tab,extend release,12hr (Mucinex DM) lisinopril 40 mg tablet 40 mg PO DAILY 06/30/22 07/31/24 History calcium carbonate (Tums) 300 mg PO BID PRN Dyspepsia 05/21/23 05/21/23 History cholecalciferol (vitamin D3) 125 125 mcg PO DAILY 05/21/23 05/21/23 History mcg (5,000 unit) tablet (Vitamin D3) clonazepam 0.5 mg tablet 0.125 mg PO HS 05/21/23 05/21/23 History diphenhydramine HCl 12.5 mg/5 mL 25 mg PO HS 05/21/23 05/21/23 History prefilled spoon hydralazine 50 mg tablet 50 mg PO TID 05/21/23 07/31/24 History lidocaine HCl 4 % topical cream 1 applic topical QID PRN Muscle 05/21/23 05/21/23 History (Aspercreme (lidocaine HCl)) Pain menthol 3.2 mg lozenges ([place] 6.4 mg mucous membrane Q2-4H PRN 05/21/23 05/21/23 History Cough Drops) Cough naproxen sodium 220 mg capsule 220 mg PO BID PRN Mild Pain (Scale 05/21/23 05/21/23 History (Aleve) Score 1-4) pantoprazole 40 mg tablet,delayed 40 mg PO DAILY 05/21/23 07/31/24 History release pumpkin seed extract-soy germ 300 1 cap PO DAILY 05/21/23 05/21/23 History mg capsule (Azo Bladder Control) Allergies Allergy/AdvReac Type Severity Reaction Status Date / Time amitriptyline Allergy Mild Unknown Verified 07/30/24 17:12 baclofen Allergy Mild Unknown Verified 07/30/24 17:12 budesonide Allergy Mild Unknown Verified 07/30/24 17:12 carbamazepine Allergy Mild Unknown Verified 07/30/24 17:12 ciprofloxacin Allergy Mild Unknown Verified 07/30/24 17:12 doxycycline Allergy Mild Unknown Verified 07/30/24 17:12 erythromycin base Allergy Mild Unknown Verified 07/30/24 17:12 gabapentin Allergy Mild Unknown Verified 07/30/24 17:12 gatifloxacin Allergy Mild Unknown Verified 07/30/24 17:12 ibuprofen Allergy Mild Unknown Verified 07/30/24 17:12 lithium Allergy Mild Unknown Verified 07/30/24 17:12 metronidazole Allergy Mild Unknown Verified 07/30/24 17:12 mometasone furoate Allergy Mild Unknown Verified 07/30/24 17:12 nortriptyline Allergy Mild Unknown Verified 07/30/24 17:12 Penicillins Allergy Mild Unknown Verified 07/30/24 17:12 prednisone Allergy Mild Unknown Verified 07/30/24 17:12 pregabalin Allergy Mild Unknown Verified 07/30/24 17:12 tramadol Allergy Mild Unknown Verified 07/30/24 17:12 bupropion Allergy Unknown Unknown Verified 07/31/24 07:52 buspirone Allergy Unknown Unknown Verified 07/31/24 07:52 cephalexin Allergy Unknown Unknown Verified 07/31/24 07:38 cetirizine Allergy Unknown Unknown Verified 07/31/24 07:38 duloxetine Allergy Unknown Unknown Verified 07/31/24 07:52 fentanyl Allergy Unknown Unknown Verified 07/30/24 17:12 fluoxetine Allergy Unknown Unknown Verified 07/31/24 07:52 hydrocodone Allergy Unknown Unknown Verified 07/30/24 17:12 levofloxacin Allergy Unknown Unknown Verified 07/31/24 07:52 metoclopramide Allergy Unknown Unknown Verified 07/31/24 07:52 milnacipran Allergy Unknown Unknown Verified 07/30/24 17:12 naproxen (From Naprosyn) Allergy Unknown Unknown Verified 07/31/24 07:38 oxybutynin Allergy Unknown Unknown Verified 07/31/24 07:52 paroxetine Allergy Unknown Unknown Verified 07/31/24 07:52 rivaroxaban Allergy Unknown Unknown Verified 07/31/24 07:52 sertraline Allergy Unknown Unknown Verified 07/31/24 07:52 solifenacin Allergy Unknown Unknown Verified 07/31/24 07:56 theophylline Allergy Unknown Unknown Verified 07/31/24 07:52 tolterodine Allergy Unknown Unknown Verified 07/31/24 07:52 triamcinolone Allergy Unknown Unknown Verified 07/31/24 07:56 [id number] Allergy Unknown Unknown Uncoded 07/30/24 14:32 Vital Signs Vital Signs - 24 hr 07/30/24 14:16 07/30/24 18:20 07/30/24 22:54 Temperature 97.3 F L 98.2 F Pulse Rate 81 84 80 Respiratory Rate 18 18 20 Blood Pressure 154/91 H 161/63 H 150/77 H Pulse Oximetry 96 98 100 Oxygen Delivery Room Air 07/31/24 00:00 07/31/24 00:25 07/31/24 06:00 Temperature 98.6 F 98.2 F Pulse Rate 83 69 Respiratory Rate 20 20 Blood Pressure 129/57 L 132/52 L Pulse Oximetry 97 97 Oxygen Delivery Room Air 07/31/24 09:00 Temperature Pulse Rate Respiratory Rate Blood Pressure Pulse Oximetry Oxygen Delivery Room Air Exam 2 Const: Other: dry oral mucosa, interfering with normal speech. Rest of the exam unremarkable. Results Labs 07/31/24 08:01 07/31/24 07:50 Labs: Short CBC 07/30/24 07/31/24 Range/Units 15:59 08:01 WBC 19.3 H 13.2 H (4.5-10.0) K/mm3 Hgb 13.6 11.0 L (12.0-15.0) g/dL Hct 41.9 34.2 L (37.0-47.0) % Plt Count 188 133 L (150-375) k/mm3 BMP 07/30/24 07/31/24 15:59 07:50 Sodium 133 L 133 L Potassium 4.8 4.4 Chloride 100 109 H Carbon Dioxide 21 L 21 L BUN 18 H 11 D Creatinine 0.62 L 0.43 L Glucose 437 H 205 H Calcium 9.8 8.6 Cardiac Enzymes 07/30/24 Range/Units 15:59 Troponin I 0.018 (0.000-0.034) ng/mL Liver Function 07/30/24 07/31/24 Range/Units 15:59 07:50 Total Bilirubin 0.7 0.5 (0.2-1.3) mg/dL AST 23 22 (14-36) U/L ALT 21 16 (6-35) U/L Alkaline Phosphatase 126 76 (38-126) U/L Albumin 3.9 2.8 L (3.5-5.1) g/dL Urine 07/30/24 Range/Units 20:08 Urine Color Yellow (Yellow) Urine Appearance Clear (Clear) Urine pH 5.0 (5.0-9.0) Ur Specific [place] 1.029 (1.001-1.035) Urine Protein Negative (Negative) mg/dL Urine Glucose (UA) 3+ H (Negative) mg/dL
[2024-07-31] MEDS: ASPIRIN 81 MG CHEWABLE TABLET 324 MG PO (16:01)
[2024-07-31 17:33] LABS: Glucose Point of Care 339 mg/dl (65-105)
[2024-07-31] MEDS: INSULIN ASPART (*BKC) 100 UNITS/ML 6 UNITS SUB-Q (20:19)
[2024-07-31 20:36] LABS: Glucose Point of Care 393 mg/dl (65-105)
[2024-07-31 22:46] LABS: Glucose Point of Care 268 mg/dl (65-105)
[2024-08-01] VITALS (7 sets, daily range): BP systolic 118–147; BP diastolic 50–75; PULSE 60–74; RESP 16–20; TEMP 36.7–37.3; O2SAT 97–100; BMI 26.6
[2024-08-01 06:31] LABS: Basophils Absolute Auto 0.1 K/mm3 (0.0-0.1); Basophils Percent Auto 0.7 % (0.2-1.2); Eosinophils Absolute Auto 0.1 K/mm3 (0-0.3); Eosinophils Percent Auto 1.1 % (0-4.4); Hemoglobin 11.1 g/dL (12.0-15.0); Immature Granulocyte Absolute 0.23 K/mm3 (0.00-0.031); Immature Granulocyte Percent A 1.9 % (0-0.5); Lymphocytes Absolute Auto 2.78 K/mm3 (0.9-3.2); Lymphocytes Percent Auto 22.9 % (18.3-44.2); Mean Corpuscular HGB Conc 31.7 g/dl (32-36); Mean Corpuscular Hemoglobin 31.2 pg (26-34); Mean Corpuscular Volume 98.3 fl (80-100); Mean Platelet Volume 10.9 fl (7.4-10.4); Monocytes Percent Auto 8.1 % (2.6-8.5); Neutrophils Percent Auto 65.3 % (45.5-73.1); Platelet Count Result 152 k/mm3 (150-375); Red Blood Count 3.56 M/mm3 (4.2-5.4); Red Cell Distribution Width 11.9 % (11.5-14.5); White Blood Count 12.2 K/mm3 (4.5-10.0)
[2024-08-01 06:43] LABS: Alanine Aminotransferase 16 U/L (6-35); Albumin Level 2.7 g/dL (3.5-5.1); Alkaline Phosphatase 82 U/L (38-126); Anion Gap -1 mmol/L (4-12); Aspartate Amino Transferase 19 U/L (14-36); Bilirubin,Total 0.5 mg/dL (0.2-1.3); Blood Urea Nitrogen 6 mg/dL (7-17); Calcium 8.9 mg/dL (8.4-10.2); Carbon Dioxide 29 mmol/L (22-30); Chloride 106 mmol/L (98-107); Estimated CRCL calculation 80 ml/min; Estimated Glomerular Filt Rate > 60; Glucose 220 mg/dL (65-110); Magnesium 1.7 mg/dL (1.6-2.3); Potassium 4.7 mmol/L (3.4-5.0); Sodium 134 mmol/L (137-145)
[2024-08-01] MEDS: LACTATED RINGERS 1,000 ML 100 ML IV CONT (07:41)
[2024-08-01 08:17] LABS: Glucose Point of Care 235 mg/dl (65-105)
--- NOTE | 2024-08-01 10:34 | PC.NURSE ---
To [facility] via [facility]. Report given to Suzan COLINDRES.
--- NOTE | 2024-08-01 10:38 | WPDANESEPPF ---
Anes - Initial Pre Proc Eval Procedure: Operation Date: 08/01/24 11:30 Proposed Procedures p Esophagogastroduodenoscopy - Ford Patel MD Date/Time: 08/01/24 10:38 Surgeon: Alison Brink DO Pre Op Diagnosis: Urinary tract infection, profound dehydration,star Patient Data Age: 74 Gender: F Height: 1.6 m Weight: 68.2 kg Last Vital Signs Temp 36.7 C 08/01/24 06:00 Pulse 61 08/01/24 06:00 Resp 20 08/01/24 06:00 BP 139/50 L 08/01/24 06:00 Pulse Ox 100 08/01/24 06:00 O2 Del Method Room Air 08/01/24 08:10 Allergies Allergy/AdvReac Type Severity Reaction Status Date / Time amitriptyline Allergy Mild Unknown Verified 07/30/24 17:12 baclofen Allergy Mild Unknown Verified 07/30/24 17:12 budesonide Allergy Mild Unknown Verified 07/30/24 17:12 carbamazepine Allergy Mild Unknown Verified 07/30/24 17:12 ciprofloxacin Allergy Mild Unknown Verified 07/30/24 17:12 doxycycline Allergy Mild Unknown Verified 07/30/24 17:12 erythromycin base Allergy Mild Unknown Verified 07/30/24 17:12 gabapentin Allergy Mild Unknown Verified 07/30/24 17:12 gatifloxacin Allergy Mild Unknown Verified 07/30/24 17:12 ibuprofen Allergy Mild Unknown Verified 07/30/24 17:12 lithium Allergy Mild Unknown Verified 07/30/24 17:12 metronidazole Allergy Mild Unknown Verified 07/30/24 17:12 mometasone furoate Allergy Mild Unknown Verified 07/30/24 17:12 nortriptyline Allergy Mild Unknown Verified 07/30/24 17:12 Penicillins Allergy Mild Unknown Verified 07/30/24 17:12 prednisone Allergy Mild Unknown Verified 07/30/24 17:12 pregabalin Allergy Mild Unknown Verified 07/30/24 17:12 tramadol Allergy Mild Unknown Verified 07/30/24 17:12 bupropion Allergy Unknown Unknown Verified 07/31/24 07:52 buspirone Allergy Unknown Unknown Verified 07/31/24 07:52 cephalexin Allergy Unknown Unknown Verified 07/31/24 07:38 cetirizine Allergy Unknown Unknown Verified 07/31/24 07:38 duloxetine Allergy Unknown Unknown Verified 07/31/24 07:52 fentanyl Allergy Unknown Unknown Verified 07/30/24 17:12 fluoxetine Allergy Unknown Unknown Verified 07/31/24 07:52 hydrocodone Allergy Unknown Unknown Verified 07/30/24 17:12 levofloxacin Allergy Unknown Unknown Verified 07/31/24 07:52 metoclopramide Allergy Unknown Unknown Verified 07/31/24 07:52 milnacipran Allergy Unknown Unknown Verified 07/30/24 17:12 naproxen (From Naprosyn) Allergy Unknown Unknown Verified 07/31/24 07:38 oxybutynin Allergy Unknown Unknown Verified 07/31/24 07:52 paroxetine Allergy Unknown Unknown Verified 07/31/24 07:52 rivaroxaban Allergy Unknown Unknown Verified 07/31/24 07:52 sertraline Allergy Unknown Unknown Verified 07/31/24 07:52 solifenacin Allergy Unknown Unknown Verified 07/31/24 07:56 theophylline Allergy Unknown Unknown Verified 07/31/24 07:52 tolterodine Allergy Unknown Unknown Verified 07/31/24 07:52 triamcinolone Allergy Unknown Unknown Verified 07/31/24 07:56 [id number] Allergy Unknown Unknown Uncoded 07/30/24 14:32 Home Medications ?Medication ?Instructions ?Recorded ?Confirmed ?Type acetaminophen 500 mg tablet 1,000 mg PO QAM AND QPM 11/03/20 05/21/23 History (Tylenol Extra Strength) atorvastatin 80 mg tablet 80 mg PO DAILY 11/03/20 05/21/23 History metformin 850 mg tablet 212.5 mg PO BID 11/03/20 05/21/23 History ypieogov-xnlz-efrd 8 mg-folic 400 1 tablet PO DAILY 11/03/20 05/21/23 History mcg-K 50 mcg-lutein 300 mcg tablet (Centrum Silver Women) dextromethorphan-guaifenesin ER 60 1 tablet PO Q12H 06/30/22 05/21/23 History mg-1,200 mg tab,extend release,12hr (Mucinex DM) lisinopril 40 mg tablet 40 mg PO DAILY 06/30/22 07/31/24 History calcium carbonate (Tums) 300 mg PO BID PRN Dyspepsia 05/21/23 05/21/23 History cholecalciferol (vitamin D3) 125 125 mcg PO DAILY 05/21/23 05/21/23 History mcg (5,000 unit) tablet (Vitamin D3) clonazepam 0.5 mg tablet 0.125 mg PO HS 05/21/23 05/21/23 History diphenhydramine HCl 12.5 mg/5 mL 25 mg PO HS 05/21/23 05/21/23 History prefilled spoon hydralazine 50 mg tablet 50 mg PO TID 05/21/23 07/31/24 History lidocaine HCl 4 % topical cream 1 applic topical QID PRN Muscle 05/21/23 05/21/23 History (Aspercreme (lidocaine HCl)) Pain menthol 3.2 mg lozenges ([place] 6.4 mg mucous membrane Q2-4H PRN 05/21/23 05/21/23 History Cough Drops) Cough naproxen sodium 220 mg capsule 220 mg PO BID PRN Mild Pain (Scale 05/21/23 05/21/23 History (Aleve) Score 1-4) pantoprazole 40 mg tablet,delayed 40 mg PO DAILY 05/21/23 07/31/24 History release pumpkin seed extract-soy germ 300 1 cap PO DAILY 05/21/23 05/21/23 History mg capsule (Azo Bladder Control) Laboratory Tests 07/31/24 07/31/24 07/31/24 08:01 12:08 17:16 WBC RBC Hgb Hct MCV MCH MCHC RDW Plt Count MPV Immature Gran % (Auto) Neut % (Auto) Lymph % (Auto) [place] % (Auto) Eos % (Auto) Baso % (Auto) Lymph # (Auto) [place] # (Auto) Eos # (Auto) Baso # (Auto) Abs Immat Gran (auto) Absolute Neuts (auto) Absolute Nucleated RBC Nucleated RBC % Sodium Potassium Chloride Carbon Dioxide Anion Gap BUN Creatinine Estim Creat Clear Calc Estimated GFR Glucose POC Capillary Glucose 266 H mg/dl 339 H mg/dl (65-105) (65-105) Hemoglobin A1c 11.5 H % (<5.7) Calcium Magnesium Total Bilirubin AST ALT Alkaline Phosphatase Total Protein Albumin 07/31/24 07/31/24 08/01/24 19:35 22:41 06:17 WBC 12.2 H K/mm3 (4.5-10.0) RBC 3.56 L M/mm3 (4.2-5.4) Hgb 11.1 L g/dL (12.0-15.0) Hct 35.0 L % (37.0-47.0) MCV 98.3 fl (80-100) MCH 31.2 pg (26-34) MCHC 31.7 L g/dl (32-36) RDW 11.9 % (11.5-14.5) Plt Count 152 k/mm3 (150-375) MPV 10.9 H fl (7.4-10.4) Immature Gran % (Auto) 1.9 H % (0-0.5) Neut % (Auto) 65.3 % (45.5-73.1) Lymph % (Auto) 22.9 % (18.3-44.2) [place] % (Auto) 8.1 % (2.6-8.5) Eos % (Auto) 1.1 % (0-4.4) Baso % (Auto) 0.7 % (0.2-1.2) Lymph # (Auto) 2.78 K/mm3 (0.9-3.2) [place] # (Auto) 1.0 H K/mm3 (0.1-0.6) Eos # (Auto) 0.1 K/mm3 (0-0.3) Baso # (Auto) 0.1 K/mm3 (0.0-0.1) Abs Immat Gran (auto) 0.23 H K/mm3 (0.00-0.031) Absolute Neuts (auto) 8.0 H K/mm3 (1.3-6.7) Absolute Nucleated RBC 0.000 K/mm3 (0.0-0.012) Nucleated RBC % 0.0 % (0.0-0.2) Sodium 134 L mmol/L (137-145) Potassium 4.7 mmol/L (3.4-5.0) Chloride 106 mmol/L (98-107) Carbon Dioxide 29 mmol/L (22-30) Anion Gap -1 L mmol/L (4-12) BUN 6 L D mg/dL (7-17) Creatinine 0.48 L mg/dL (0.7-1.0) Estim Creat Clear Calc 80 ml/min Estimated GFR > 60 (59 - ) Glucose 220 H mg/dL (65-110) POC Capillary Glucose 393 H mg/dl 268 H mg/dl (65-105) (65-105) Hemoglobin A1c Calcium 8.9 mg/dL (8.4-10.2) Magnesium 1.7 mg/dL (1.6-2.3) Total Bilirubin 0.5 mg/dL (0.2-1.3) AST 19 U/L (14-36) ALT 16 U/L (6-35) Alkaline Phosphatase 82 U/L (38-126) Total Protein 5.0 L g/dL (6.3-8.2) Albumin 2.7 L g/dL (3.5-5.1) 08/01/24 08:15 WBC RBC Hgb Hct MCV MCH MCHC RDW Plt Count MPV Immature Gran % (Auto) Neut % (Auto) Lymph % (Auto) [place] % (Auto) Eos % (Auto) Baso % (Auto) Lymph # (Auto) [place] # (Auto) Eos # (Auto) Baso # (Auto) Abs Immat Gran (auto) Absolute Neuts (auto) Absolute Nucleated RBC Nucleated RBC % Sodium Potassium Chloride Carbon Dioxide Anion Gap BUN Creatinine Estim Creat Clear Calc Estimated GFR Glucose POC Capillary Glucose 235 H mg/dl (65-105) Hemoglobin A1c Calcium Magnesium Total Bilirubin AST ALT Alkaline Phosphatase Total Protein Albumin Patient hx anesthesia problems: none Family hx anesthesia problems: none Results Review: All pre-operative results and documents have been reviewed as part of the pre-operative evaluation. [facility] Past Medical History Medical History Complex regional pain syndrome Breast cancer Iron deficiency anemia Irritable bowel GERD (gastroesophageal reflux disease) Essential hypertension Diabetic neuropathy Stroke Chronic left sided weakness and numbness Fibromyalgia Diabetes Surgical History Surgical History History of bilateral mastectomy History of left hip replacement Status post insertion of spinal cord stimulator Pacemaker Left chest placed 2021 H/O cataract extraction Hx of cholecystectomy H/O: hysterectomy History of tonsillectomy Family History Family History Father Family history of emphysema Acute myocardial infarction, Onset Age: 72 , Onset Age: 72 Mother Multiple myeloma, Onset Age: 92 , Onset Age: 92 Other Family history of malignant neoplasm Social History Social History Social History: Patient has been since 2020. She lives in her own home. Her only son comes and checks on her 3 or 4 times a week. 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 She uses a wheelchair and can ambulate short distances with a walker. Code status: DNR/DNI per patient request Surrogate decision maker: Caleb (son) Smoking status: Never smoker Alcohol intake: never Substance use: never Substance use type: does not use Do You Feel Safe in your Home?: Yes Lack of Transportation: No Lack of Food: Never True Current Housing: I Have Housing Concerned About Future Housing: No Difficulty Paying Gas/Electric Bills: No Difficulty Paying for Meds: No Currently Unemployed: No Education: Bachelor's Degree Difficulty w/ Childcare or Family Care: No Spiritual care concerns: No Anes - Eval Final PreProcedure Day of Procedure 08/01/24 10:38 Patient weight: overweight Heart: regular rate and rhythm (paced) Lungs: clear to auscultation Airway: Mallampati scale class II Neurological: alert and oriented Last oral intake: >/= 8 hours ASA classification: IV Emergent: no Anesthetic plan: proceed Anesthesia type and monitoring: general GIVS and standard monitoring Results Review: All pre-operative results and documents have been reviewed as part of the pre-operative evaluation. Informed Consent: The patient's anesthetic plan and its attendant risks and benefits were discussed with the patient/family/POA. Questions were solicited and answers provided to the satisfaction of the patient/family/POA.
--- NOTE | 2024-08-01 10:50 | PM.IMPN ---
Progress Note: A&P Assessment and Plan (1) Syncope and collapse: Code(s): R55 - Syncope and collapse Status: Acute Assessment and Plan: -secondary to uti and dehydration (2) Acute dehydration: Code(s): E86.0 - Dehydration Status: Acute Assessment and Plan: -s/p fluid resuscitation continue iv fluids and iv abx - order orthostatics (3) Acute UTI: Code(s): N39.0 - Urinary tract infection, site not specified Status: Acute Assessment and Plan: - UA in ER indicative of UTI - continue iv rocephin - await uc (4) Dysphagia: Code(s): R13.10 - Dysphagia, unspecified Status: Acute Assessment and Plan: -Pt has history of esophageal narrowing requiring dilation every 2 years -Prior done at clinic in [facility]) by Dr. Allen about 2 years ago -patient felt like food stuck this morning with breakfast, got Maalox and IV Protonix with improvement -Full liquid diet, NPO at midnight -GI consulted, will EGD tomorrow -Patient may also need swallow study alsi - pt not tolerating solids or liquids (5) Essential hypertension: Code(s): I10 - Essential (primary) hypertension Status: Acute Assessment and Plan: -restart bp meds Bp is high nl today with iv fluids (6) Type 2 diabetes mellitus with hyperglycemia, without long-term current use of insulin: Code(s): E11.65 - Type 2 diabetes mellitus with hyperglycemia Status: Acute Assessment and Plan: -On metformin at home -A1c high at 11.5 -ACHS fingerstick glucose with high dose SSI (7) History of stroke: Code(s): Z86.73 - Personal history of transient ischemic attack (TIA), and cerebral infarction without residual deficits Status: Acute Assessment and Plan: -Residual left sided weakness but usually able to ambulate 6-10 feet to use bedside commode -Dizzy with syncope on 07/30/24 -Still unable to stand on 07/31 with PT -Pacemaker and pain stimulator ernesto in place, unable to MRI -Dysphagia for 2 weeks -Will give 324 mg aspirin and order CTA head/neck in case this was a subsequent stroke causing new symptoms Plan Aspirin and Lovenox to start after egd Subjective Date/time seen: 08/01/24 10:50 Interval history: Pt admitted with dehydration uti syncope and dysphagia Pt going for EDG today pt has history of esophageal stricture pt lives alone continue to treat medically PT/ OT ordered for weakness Review of Systems Review of Systems: Pt feels weak, and tired unable to tolerate liquid or solid foods Exam Narrative: GENERAL: dry mucous membranes, no acute distress HEAD: Normocephalic, atraumatic. ENT:? Mucous membranes dry. CHEST: Clear to auscultation.? No respiratory distress. HEART: Regular rate and rhythm. ? Normal peripheral pulses. ABDOMEN: Soft, nontender, nondistended. EXTREMITIES: Normal range of motion. No peripheral edema. SKIN: Warm dry normal color NEURO: Alert and oriented x3. Residual left arm/leg weakness, no slurred speech at this time, no facial droop. PSYCH: Normal mood and affect Objective Data Vital Signs Vital Signs: Vital Signs - 24 hr 07/31/24 16:20 07/31/24 16:36 07/31/24 16:36 Temperature 36.7 C 36.7 C Pulse Rate 65 65 Respiratory Rate 18 18 Blood Pressure 111/49 L 111/49 L Pulse Oximetry 97 97 Oxygen Delivery Room Air 07/31/24 16:40 07/31/24 16:43 07/31/24 20:00 Temperature Pulse Rate 74 Respiratory Rate Blood Pressure 124/55 L 116/66 129/57 L Pulse Oximetry 99 Oxygen Delivery 07/31/24 20:14 07/31/24 21:37 08/01/24 06:00 Temperature 36.7 C 36.7 C Pulse Rate 68 61 Respiratory Rate 20 20 Blood Pressure 124/53 L 139/50 L Pulse Oximetry 98 100 Oxygen Delivery Room Air 08/01/24 08:10 08/01/24 10:30 Temperature 36.8 C Pulse Rate 64 Respiratory Rate 18 Blood Pressure 147/53 H Pulse Oximetry 97 Oxygen Delivery Room Air Room Air Intake/Output Intake/Output: Intake & Output 07/29/24 07/30/24 07/31/24 08/01/24 23:59 23:59 23:59 23:59 Intake Total 3100 3050 1380 Output Total 1125 1650 Balance 3100 1925 -270 Meds/Results Medications: Active Medications Generic Name Dose Route Start Last Admin Trade Name Freq PRN Reason Stop Dose Admin Atorvastatin Calcium 80 mg 08/01/24 09:00 08/01/24 07:42 Atorvastatin 40 Mg Tablet PO Not Given DAILY RAKAN Dextrose 12.5 gm 07/31/24 07:28 Dextrose 50% 25 Gm/50 Ml Syringe IV PUSH PRN PRN Hypoglycemia Protocol Glucagon 1 mg 07/31/24 07:28 Glucagon For Inj 1 Mg Vial IM PRN PRN Hypoglycemia Protocol Glucose 15 gm 07/31/24 07:28 Glucose Oral Gel 15 Gm Of Glucse In 37.5 Gm Tube PO PRN PRN Hypoglycemia Protocol Dextrose 1,000 mls @ 100 mls/hr 07/31/24 07:28 Dextrose 5% 1,000 Ml IVPB PRN PRN Hypoglycemia Protocol Ceftriaxone Sodium 1 gm in 50 mls @ 100 mls/hr 07/31/24 12:00 07/31/24 13:56 Rocephin 1 Gm/Ns 50 Ml IVPB Infused Q24H RAKAN Infusion Lactated Ringer's 1,000 mls @ 100 mls/hr 07/31/24 07:35 08/01/24 07:41 Lr - Lactated Ringers Iv IV CONT 100 mls/hr .Q10H RAKAN Administration Lactated Ringer's 1,000 mls @ 150 mls/hr 08/01/24 09:55 Lr - Lactated Ringers Iv IV CONT .[facility]6H40M [facility] Insulin Aspart 4 - 8 units 07/31/24 08:00 08/01/24 08:44 Insulin Aspart (*Bkc) 100 Units/Ml SUB-Q Not Given TIDWM [facility] Protocol Ondansetron HCl 4 mg 07/30/24 22:02 07/31/24 10:04 Ondansetron Inj 4 Mg/2 Ml Vial IV PUSH 4 mg Q4H PRN Administration Nausea Pantoprazole Sodium 40 mg 08/01/24 09:00 08/01/24 07:42 Pantoprazole 40 Mg Tablet PO Not Given DAILY [facility] Radiology Results: ITS Impressions Chest X-Ray 07/30/24 15:20 IMPRESSION: No focal infiltrate or effusion. Head CT 07/30/24 15:39 IMPRESSION: 1. Old infarct involving the right basal ganglia, right internal capsule, and right frontoparietal garcia radiata. 2. Stable moderate nonspecific cerebral white matter disease, which likely represents chronic small vessel ischemic disease. Head/Neck CTA 07/31/24 22:28 IMPRESSION: 1. Unremarkable CTA head and neck. 2. Percent stenosis per NASCET criteria is 0%. Labs Labs: Laboratory Results - last 24 hr 07/31/24 07/31/24 07/31/24 12:08 17:16 19:35 WBC RBC Hgb Hct MCV MCH MCHC RDW Plt Count MPV Immature Gran % (Auto) Neut % (Auto) Lymph % (Auto) [place] % (Auto) Eos % (Auto) Baso % (Auto) Lymph # (Auto) [place] # (Auto) Eos # (Auto) Baso # (Auto) Abs Immat Gran (auto) Absolute Neuts (auto) Absolute Nucleated RBC Nucleated RBC % Sodium Potassium Chloride Carbon Dioxide Anion Gap BUN Creatinine Estim Creat Clear Calc Estimated GFR Glucose POC Capillary Glucose 266 H 339 H 393 H Calcium Magnesium Total Bilirubin AST ALT Alkaline Phosphatase Total Protein Albumin 07/31/24 08/01/24 08/01/24 22:41 06:17 08:15 WBC 12.2 H RBC 3.56 L Hgb 11.1 L Hct 35.0 L MCV 98.3 MCH 31.2 MCHC 31.7 L RDW 11.9 Plt Count 152 MPV 10.9 H Immature Gran % (Auto) 1.9 H Neut % (Auto) 65.3 Lymph % (Auto) 22.9 [place] % (Auto) 8.1 Eos % (Auto) 1.1 Baso % (Auto) 0.7 Lymph # (Auto) 2.78 [place] # (Auto) 1.0 H Eos # (Auto) 0.1 Baso # (Auto) 0.1 Abs Immat Gran (auto) 0.23 H Absolute Neuts (auto) 8.0 H Absolute Nucleated RBC 0.000 Nucleated RBC % 0.0 Sodium 134 L Potassium 4.7 Chloride 106 Carbon Dioxide 29 Anion Gap -1 L BUN 6 L D Creatinine 0.48 L Estim Creat Clear Calc 80 Estimated GFR > 60 Glucose 220 H POC Capillary Glucose 268 H 235 H Calcium 8.9 Magnesium 1.7 Total Bilirubin 0.5 AST 19 ALT 16 Alkaline Phosphatase 82 Total Protein 5.0 L Albumin 2.7 L
[2024-08-01] MEDS: LACTATED RINGERS 1,000 ML 150 ML IV CONT (10:54)
[2024-08-01 10:56] LABS: Glucose Point of Care 223 mg/dl (65-105)
--- NOTE | 2024-08-01 10:56 | PCPTNOTE ---
Attempted to see patient for PT, however patient was out of the room for procedure.
[2024-08-01] MEDS: BENZOCAINE (*SP) 60 ML SPRAY CAN (HURRICAINE) 1 SPRAY MUCOUS MEM (11:31)
--- NOTE | 2024-08-01 11:39 | PCOTNOTE ---
The patient treatment was not able to be completed. Patient out of the room. Will plan to continue treatment per plan of care.
--- NOTE | 2024-08-01 11:50 | P.PNGI_ITS ---
Progress Note: A&P Assessment and Plan (1) Dysphagia: Code(s): R13.10 - Dysphagia, unspecified Status: Acute Assessment and Plan: Endoscopy did not reveal stenosis, ulcers, neoplasms or mechanical explanations for dysphagia. There was a question of small exudates in the upper and mid 3rd of the esophagus, but were easily washed, therefore candidiasis diagnosis is still in doubt. Multiple biopsies taken to clarify this issue, if positive will recommend antifungal treatment. If candidiasis is present, that might be a good explanation for dysphagia. If not, an esophageal manometry will be indicated to rule out motility disorders of the esophagus. Time Spent With Patient Time with patient: less than 15 minutes Subjective Date/time seen: 08/01/24 11:50 Interval history: No change in her current status Objective Data Vital Signs Vital Signs: Vital Signs - 24 hr 07/31/24 16:20 07/31/24 16:36 07/31/24 16:36 Temperature 98.0 F 98.0 F Pulse Rate 65 65 Respiratory Rate 18 18 Blood Pressure 111/49 L 111/49 L Pulse Oximetry 97 97 Oxygen Delivery Room Air 07/31/24 16:40 07/31/24 16:43 07/31/24 20:00 Temperature Pulse Rate 74 Respiratory Rate Blood Pressure 124/55 L 116/66 129/57 L Pulse Oximetry 99 Oxygen Delivery 07/31/24 20:14 07/31/24 21:37 08/01/24 06:00 Temperature 98.0 F 98.1 F Pulse Rate 68 61 Respiratory Rate 20 20 Blood Pressure 124/53 L 139/50 L Pulse Oximetry 98 100 Oxygen Delivery Room Air 08/01/24 08:10 08/01/24 10:30 Temperature 98.2 F Pulse Rate 64 Respiratory Rate 18 Blood Pressure 147/53 H Pulse Oximetry 97 Oxygen Delivery Room Air Room Air Intake/Output Intake/Output: Intake & Output 07/29/24 07/30/24 07/31/24 08/01/24 23:59 23:59 23:59 23:59 Intake Total 3100 3050 1380 Output Total 1125 1650 Balance 3100 1925 -270 Meds/Results Medications: Active Medications Generic Name Dose Route Start Last Admin Trade Name Freq PRN Reason Stop Dose Admin Atorvastatin Calcium 80 mg 08/01/24 09:00 08/01/24 07:42 Atorvastatin 40 Mg Tablet PO Not Given DAILY RAKAN Dextrose 12.5 gm 07/31/24 07:28 Dextrose 50% 25 Gm/50 Ml Syringe IV PUSH PRN PRN Hypoglycemia Protocol Glucagon 1 mg 07/31/24 07:28 Glucagon For Inj 1 Mg Vial IM PRN PRN Hypoglycemia Protocol Glucose 15 gm 07/31/24 07:28 Glucose Oral Gel 15 Gm Of Glucse In 37.5 Gm Tube PO PRN PRN Hypoglycemia Protocol Hydralazine HCl 50 mg 08/01/24 13:00 Hydralazine Hcl 50 Mg Tablet PO TID RAKAN Dextrose 1,000 mls @ 100 mls/hr 07/31/24 07:28 Dextrose 5% 1,000 Ml IVPB PRN PRN Hypoglycemia Protocol Ceftriaxone Sodium 1 gm in 50 mls @ 100 mls/hr 07/31/24 12:00 07/31/24 13:56 Rocephin 1 Gm/Ns 50 Ml IVPB Infused Q24H RAKAN Infusion Lactated Ringer's 1,000 mls @ 100 mls/hr 07/31/24 07:35 08/01/24 07:41 Lr - Lactated Ringers Iv IV CONT 100 mls/hr .Q10H RAKAN Administration Lactated Ringer's 1,000 mls @ 150 mls/hr 08/01/24 09:55 08/01/24 11:43 Lr - Lactated Ringers Iv IV CONT 150 mls/hr .Q6H40M RAKAN Infusion Insulin Aspart 4 - 8 units 07/31/24 08:00 08/01/24 08:44 Insulin Aspart (*Bkc) 100 Units/Ml SUB-Q Not Given TIDWM [facility] Protocol Lisinopril 40 mg 08/02/24 09:00 Lisinopril 20 Mg Tablet PO DAILY [facility] Ondansetron HCl 4 mg 07/30/24 22:02 07/31/24 10:04 Ondansetron Inj 4 Mg/2 Ml Vial IV PUSH 4 mg Q4H PRN Administration Nausea Pantoprazole Sodium 40 mg 08/01/24 09:00 08/01/24 07:42 Pantoprazole 40 Mg Tablet PO Not Given DAILY [facility] Radiology Results: ITS Impressions Chest X-Ray 07/30/24 15:20 IMPRESSION: No focal infiltrate or effusion. Head CT 07/30/24 15:39 IMPRESSION: 1. Old infarct involving the right basal ganglia, right internal capsule, and right frontoparietal garcia radiata. 2. Stable moderate nonspecific cerebral white matter disease, which likely represents chronic small vessel ischemic disease. Head/Neck CTA 07/31/24 22:28 IMPRESSION: 1. Unremarkable CTA head and neck. 2. Percent stenosis per NASCET criteria is 0%. Labs Labs: Laboratory Results - last 24 hr 07/31/24 07/31/24 07/31/24 12:08 17:16 19:35 WBC RBC Hgb Hct MCV MCH MCHC RDW Plt Count MPV Immature Gran % (Auto) Neut % (Auto) Lymph % (Auto) [place] % (Auto) Eos % (Auto) Baso % (Auto) Lymph # (Auto) [place] # (Auto) Eos # (Auto) Baso # (Auto) Abs Immat Gran (auto) Absolute Neuts (auto) Absolute Nucleated RBC Nucleated RBC % Sodium Potassium Chloride Carbon Dioxide Anion Gap BUN Creatinine Estim Creat Clear Calc Estimated GFR Glucose POC Capillary Glucose 266 H 339 H 393 H Calcium Magnesium Total Bilirubin AST ALT Alkaline Phosphatase Total Protein Albumin 07/31/24 08/01/24 08/01/24 22:41 06:17 08:15 WBC 12.2 H RBC 3.56 L Hgb 11.1 L Hct 35.0 L MCV 98.3 MCH 31.2 MCHC 31.7 L RDW 11.9 Plt Count 152 MPV 10.9 H Immature Gran % (Auto) 1.9 H Neut % (Auto) 65.3 Lymph % (Auto) 22.9 [place] % (Auto) 8.1 Eos % (Auto) 1.1 Baso % (Auto) 0.7 Lymph # (Auto) 2.78 [place] # (Auto) 1.0 H Eos # (Auto) 0.1 Baso # (Auto) 0.1 Abs Immat Gran (auto) 0.23 H Absolute Neuts (auto) 8.0 H Absolute Nucleated RBC 0.000 Nucleated RBC % 0.0 Sodium 134 L Potassium 4.7 Chloride 106 Carbon Dioxide 29 Anion Gap -1 L BUN 6 L D Creatinine 0.48 L Estim Creat Clear Calc 80 Estimated GFR > 60 Glucose 220 H POC Capillary Glucose 268 H 235 H Calcium 8.9 Magnesium 1.7 Total Bilirubin 0.5 AST 19 ALT 16 Alkaline Phosphatase 82 Total Protein 5.0 L Albumin 2.7 L 08/01/24 10:52 WBC RBC Hgb Hct MCV MCH MCHC RDW Plt Count MPV Immature Gran % (Auto) Neut % (Auto) Lymph % (Auto) [place] % (Auto) Eos % (Auto) Baso % (Auto) Lymph # (Auto) [place] # (Auto) Eos # (Auto) Baso # (Auto) Abs Immat Gran (auto) Absolute Neuts (auto) Absolute Nucleated RBC Nucleated RBC % Sodium Potassium Chloride Carbon Dioxide Anion Gap BUN Creatinine Estim Creat Clear Calc Estimated GFR Glucose POC Capillary Glucose 223 H Calcium Magnesium Total Bilirubin AST ALT Alkaline Phosphatase Total Protein Albumin
[2024-08-01 12:06] LABS: Glucose Point of Care 218 mg/dl (65-105)
--- NOTE | 2024-08-01 12:23 | PC.NURSE ---
Returned from GI Lab via stretcher. Report received from Amanda COLINDRES. No patient complaints at this time.
--- NOTE | 2024-08-01 12:53 | PC.NURSE ---
To OR via bed. Report given to Cat RN.
[2024-08-01 17:12] LABS: Glucose Point of Care 278 mg/dl (65-105)
[2024-08-01] MEDS: hydrALAZINE HCL 50 MG TABLET PO (17:39)
[2024-08-01] MEDS: INSULIN ASPART (*BKC) 100 UNITS/ML SUB-Q (17:39)
[2024-08-01] MEDS: clonazePAM (*CRX) 0.5 MG TABLET PO (22:21)
[2024-08-02] VITALS (8 sets, daily range): BP systolic 115–152; BP diastolic 51–88; PULSE 60–110; RESP 12–18; TEMP 36.6–37.3; O2SAT 97–99
[2024-08-02 00:11] LABS: Glucose Point of Care 292 mg/dl (65-105)
[2024-08-02] MEDS: LACTATED RINGERS 1,000 ML 100 ML IV CONT (01:00)
[2024-08-02 05:31] LABS: Basophils Absolute Auto 0.1 K/mm3 (0.0-0.1); Eosinophils Absolute Auto 0.1 K/mm3 (0-0.3); Eosinophils Percent Auto 1.2 % (0-4.4); Hematocrit 34.4 % (37.0-47.0); Hemoglobin 10.9 g/dL (12.0-15.0); Immature Granulocyte Absolute 0.21 K/mm3 (0.00-0.031); Immature Granulocyte Percent A 1.9 % (0-0.5); Lymphocytes Absolute Auto 2.84 K/mm3 (0.9-3.2); Lymphocytes Percent Auto 25.2 % (18.3-44.2); Mean Corpuscular HGB Conc 31.7 g/dl (32-36); Mean Corpuscular Hemoglobin 31.2 pg (26-34); Mean Corpuscular Volume 98.6 fl (80-100); Mean Platelet Volume 10.8 fl (7.4-10.4); Monocytes Percent Auto 9.1 % (2.6-8.5); Neutrophils Absolute Auto 6.9 K/mm3 (1.3-6.7); Neutrophils Percent Auto 61.6 % (45.5-73.1); Platelet Count Result 176 k/mm3 (150-375); Red Blood Count 3.49 M/mm3 (4.2-5.4); Red Cell Distribution Width 11.9 % (11.5-14.5); White Blood Count 11.3 K/mm3 (4.5-10.0)
[2024-08-02 05:56] LABS: Alanine Aminotransferase 15 U/L (6-35); Albumin Level 2.6 g/dL (3.5-5.1); Alkaline Phosphatase 72 U/L (38-126); Anion Gap 2 mmol/L (4-12); Aspartate Amino Transferase 21 U/L (14-36); Bilirubin,Total 0.5 mg/dL (0.2-1.3); Blood Urea Nitrogen 9 mg/dL (7-17); Calcium 8.3 mg/dL (8.4-10.2); Carbon Dioxide 27 mmol/L (22-30); Chloride 103 mmol/L (98-107); Estimated CRCL calculation 79 ml/min; Estimated Glomerular Filt Rate > 60; Glucose 228 mg/dL (65-110); Magnesium 1.6 mg/dL (1.6-2.3); Sodium 132 mmol/L (137-145)
[2024-08-02 07:59] LABS: Glucose Point of Care 251 mg/dl (65-105)
[2024-08-02] MEDS: hydrALAZINE HCL 50 MG TABLET PO ×3 (09:26→17:26)
[2024-08-02] MEDS: lisinopriL 20 MG TABLET 40 MG PO (09:26)
[2024-08-02] MEDS: INSULIN ASPART (*BKC) 100 UNITS/ML SUB-Q ×3 (09:26→17:27)
[2024-08-02] MEDS: PANTOPRAZOLE SODIUM IV 40 MG VIAL IV PUSH (09:26)
[2024-08-02] MEDS: ATORVASTATIN 40 MG TABLET 80 MG PO (09:26)
--- NOTE | 2024-08-02 10:20 | P.PNIM_ITS ---
Progress Note: A&P Assessment and Plan (1) Syncope and collapse: Code(s): R55 - Syncope and collapse Status: Acute Assessment and Plan: -secondary to uti and dehydration (2) Acute dehydration: Code(s): E86.0 - Dehydration Status: Acute Assessment and Plan: -s/p fluid resuscitation - order orthostatics - dc iv fluids - pt eating and drinking well (3) Acute UTI: Code(s): N39.0 - Urinary tract infection, site not specified Status: Acute Assessment and Plan: - UA in ER indicative of UTI - continue iv rocephin - await uc - pt not tolerating oral cefdinir switch back to iV rocephin (4) Dysphagia: Code(s): R13.10 - Dysphagia, unspecified Status: Acute Assessment and Plan: -Pt has history of esophageal narrowing requiring dilation every 2 years -Prior done at clinic in [facility] ([place] or [place]) by Dr. Allen about 2 years ago -patient felt like food stuck this morning with breakfast, got Maalox and IV Protonix with improvement -Full liquid diet, NPO at midnight -GI consulted, will EGD tomorrow -gastritis v hank candidasis - change to oral PPI and oral diflucan (5) Essential hypertension: Code(s): I10 - Essential (primary) hypertension Status: Acute Assessment and Plan: -restart bp meds (6) Type 2 diabetes mellitus with hyperglycemia, without long-term current use of insulin: Code(s): E11.65 - Type 2 diabetes mellitus with hyperglycemia Status: Acute Assessment and Plan: -On metformin at home -A1c high at 11.5 -ACHS fingerstick glucose with high dose SSI (7) History of stroke: Code(s): Z86.73 - Personal history of transient ischemic attack (TIA), and cerebral infarction without residual deficits Status: Acute Assessment and Plan: -Residual left sided weakness but usually able to ambulate 6-10 feet to use bedside commode -Dizzy with syncope on 07/30/24 -Still unable to stand on 07/31 with PT -Pacemaker and pain stimulator ernesto in place, unable to MRI -Dysphagia for 2 weeks -restart ASA 81 mg po qdaily Plan ASa and lovenox on board Subjective Date/time seen: 08/02/24 10:20 Interval history: Pt admitted with dehydration uti syncope and dysphagia Pt going for EDG today pt has history of esophageal stricture pt lives alone continue to treat medically PT/ OT ordered for weakness EGD yesterday shows gastritis + possible oes candidiasis Review of Systems Review of Systems: Pt feels weak Exam Narrative: GENERAL: dry mucous membranes, no acute distress HEAD: Normocephalic, atraumatic. ENT:? Mucous membranes dry. CHEST: Clear to auscultation.? No respiratory distress. HEART: Regular rate and rhythm. ? Normal peripheral pulses. ABDOMEN: Soft, nontender, nondistended. EXTREMITIES: Normal range of motion. No peripheral edema. SKIN: Warm dry normal color NEURO: Alert and oriented x3. Residual left arm/leg weakness, no slurred speech at this time, no facial droop. PSYCH: Normal mood and affect Objective Data Vital Signs Vital Signs: Vital Signs - 24 hr 08/01/24 10:30 08/01/24 11:44 08/01/24 11:54 Temperature 36.8 C Pulse Rate 64 60 60 Respiratory Rate 18 20 18 Blood Pressure 147/53 H 118/66 124/67 Pulse Oximetry 97 98 97 Oxygen Delivery Room Air Room Air Room Air 08/01/24 12:04 08/01/24 12:43 08/01/24 20:53 Temperature 37.3 C 36.8 C Pulse Rate 60 61 74 Respiratory Rate 20 16 20 Blood Pressure 144/75 H 139/53 L 136/53 L Pulse Oximetry 97 99 98 Oxygen Delivery Room Air 08/02/24 05:58 08/02/24 09:25 Temperature 36.6 C Pulse Rate 60 Respiratory Rate 18 Blood Pressure 152/61 H Pulse Oximetry 97 Oxygen Delivery Room Air Intake/Output Intake/Output: Intake & Output 07/30/24 07/31/24 08/01/24 08/02/24 23:59 23:59 23:59 23:59 Intake Total 3100 3050 2560 1100 Output Total 1125 2450 750 Balance 3100 1925 110 350 Meds/Results Medications: Active Medications Generic Name Dose Route Start Last Admin Trade Name Freq PRN Reason Stop Dose Admin Atorvastatin Calcium 80 mg 08/01/24 09:00 08/02/24 09:26 Atorvastatin 40 Mg Tablet PO 80 mg DAILY RAKAN Administration Cefdinir 300 mg 08/02/24 09:00 08/02/24 09:31 Cefdinir 300 Mg Capsule PO 08/05/24 21:01 Not Given Q12HR RAKAN Dextrose 12.5 gm 07/31/24 07:28 Dextrose 50% 25 Gm/50 Ml Syringe IV PUSH PRN PRN Hypoglycemia Protocol Diphenhydramine HCl 25 mg 08/01/24 22:16 Diphenhydramine Hcl Elixir 12.5 Mg/5 Ml Udc PO HS PRN Sleep aid Enoxaparin Sodium 40 mg 08/02/24 09:00 08/02/24 09:26 Enoxaparin 40 Mg/0.4 Ml Syringe SUB-Q Not Given DAILY RAKAN Glucagon 1 mg 07/31/24 07:28 Glucagon For Inj 1 Mg Vial IM PRN PRN Hypoglycemia Protocol Glucose 15 gm 07/31/24 07:28 Glucose Oral Gel 15 Gm Of Glucse In 37.5 Gm Tube PO PRN PRN Hypoglycemia Protocol Hydralazine HCl 50 mg 08/01/24 13:00 08/02/24 09:26 Hydralazine Hcl 50 Mg Tablet PO 50 mg TID RAKAN Administration Dextrose 1,000 mls @ 100 mls/hr 07/31/24 07:28 Dextrose 5% 1,000 Ml IVPB PRN PRN Hypoglycemia Protocol Insulin Aspart 4 - 8 units 07/31/24 08:00 08/02/24 09:26 Insulin Aspart (*Bkc) 100 Units/Ml SUB-Q 5 units TIDWM RAKAN Administration Protocol Lisinopril 40 mg 08/02/24 09:00 08/02/24 09:26 Lisinopril 20 Mg Tablet PO 40 mg DAILY RAKAN Administration Ondansetron HCl 4 mg 07/30/24 22:02 07/31/24 10:04 Ondansetron Inj 4 Mg/2 Ml Vial IV PUSH 4 mg Q4H PRN Administration Nausea Pantoprazole Sodium 40 mg 08/02/24 09:00 08/02/24 09:26 Pantoprazole Sodium Iv 40 Mg Vial IV PUSH 40 mg QAM RAKAN Administration Radiology Results: ITS Impressions Chest X-Ray 07/30/24 15:20 IMPRESSION: No focal infiltrate or effusion. Head CT 07/30/24 15:39 IMPRESSION: 1. Old infarct involving the right basal ganglia, right internal capsule, and right frontoparietal garcia radiata. 2. Stable moderate nonspecific cerebral white matter disease, which likely represents chronic small vessel ischemic disease. Head/Neck CTA 07/31/24 22:28 IMPRESSION: 1. Unremarkable CTA head and neck. 2. Percent stenosis per NASCET criteria is 0%. Labs Labs: Laboratory Results - last 24 hr 08/01/24 08/01/24 08/01/24 10:52 12:04 17:01 WBC RBC Hgb Hct MCV MCH MCHC RDW Plt Count MPV Immature Gran % (Auto) Neut % (Auto) Lymph % (Auto) [place] % (Auto) Eos % (Auto) Baso % (Auto) Lymph # (Auto) [place] # (Auto) Eos # (Auto) Baso # (Auto) Abs Immat Gran (auto) Absolute Neuts (auto) Absolute Nucleated RBC Nucleated RBC % Sodium Potassium Chloride Carbon Dioxide Anion Gap BUN Creatinine Estim Creat Clear Calc Estimated GFR Glucose POC Capillary Glucose 223 H 218 H 278 H Calcium Magnesium Total Bilirubin AST ALT Alkaline Phosphatase Total Protein Albumin 08/01/24 08/02/24 08/02/24 19:56 05:19 07:54 WBC 11.3 H RBC 3.49 L Hgb 10.9 L Hct 34.4 L MCV 98.6 MCH 31.2 MCHC 31.7 L RDW 11.9 Plt Count 176 MPV 10.8 H Immature Gran % (Auto) 1.9 H Neut % (Auto) 61.6 Lymph % (Auto) 25.2 [place] % (Auto) 9.1 H Eos % (Auto) 1.2 Baso % (Auto) 1.0 Lymph # (Auto) 2.84 [place] # (Auto) 1.0 H Eos # (Auto) 0.1 Baso # (Auto) 0.1 Abs Immat Gran (auto) 0.21 H Absolute Neuts (auto) 6.9 H Absolute Nucleated RBC 0.000 Nucleated RBC % 0.0 Sodium 132 L Potassium 4.0 Chloride 103 Carbon Dioxide 27 Anion Gap 2 L BUN 9 Creatinine 0.49 L Estim Creat Clear Calc 79 Estimated GFR > 60 Glucose 228 H POC Capillary Glucose 292 H 251 H Calcium 8.3 L Magnesium 1.6 Total Bilirubin 0.5 AST 21 ALT 15 Alkaline Phosphatase 72 Total Protein 5.0 L Albumin 2.6 L
--- NOTE | 2024-08-02 10:31 | WPDGIPROGNO ---
Progress Note: A&P Assessment and Plan (1) Candidiasis of mouth and esophagus: Code(s): B37.81 - Candidal esophagitis; B37.0 - Candidal stomatitis Status: Acute Assessment and Plan: The patient's dysphagia is probably attributable to candidiasis. See pathology report from yesterday. Fluconazole 100 mg q.d. prescribed for 10 days. This dose is modified from the recommended standard dose due to possible interaction from other medicine she takes. Patient should visit us if dysphagia persists after 10 days of treatment with fluconazole, in which case, she will definitely need a manometry to rule out esophageal motility disorder. Will sign off for now, please contact us if new problems arise. Subjective Date/time seen: 08/02/24 10:31 Interval history: Patient with dysphagia, mild to moderate Objective Data Vital Signs Vital Signs: Vital Signs - 24 hr 08/01/24 11:44 08/01/24 11:54 08/01/24 12:04 Temperature Pulse Rate 60 60 60 Respiratory Rate 20 18 20 Blood Pressure 118/66 124/67 144/75 H Pulse Oximetry 98 97 97 Oxygen Delivery Room Air Room Air Room Air 08/01/24 12:43 08/01/24 20:53 08/02/24 05:58 Temperature 99.1 F 98.3 F 97.8 F Pulse Rate 61 74 60 Respiratory Rate 16 20 18 Blood Pressure 139/53 L 136/53 L 152/61 H Pulse Oximetry 99 98 97 Oxygen Delivery 08/02/24 09:25 Temperature Pulse Rate Respiratory Rate Blood Pressure Pulse Oximetry Oxygen Delivery Room Air Intake/Output Intake/Output: Intake & Output 07/30/24 07/31/24 08/01/24 08/02/24 23:59 23:59 23:59 23:59 Intake Total 3100 3050 2560 1100 Output Total 1125 2450 750 Balance 3100 1925 110 350 Meds/Results Medications: Active Medications Generic Name Dose Route Start Last Admin Trade Name Freq PRN Reason Stop Dose Admin Aspirin 81 mg 08/03/24 09:00 Aspirin 81 Mg Enteric Tablet PO QAM [facility] Atorvastatin Calcium 80 mg 08/01/24 09:00 08/02/24 09:26 Atorvastatin 40 Mg Tablet PO 80 mg DAILY [facility] Administration Cefdinir 300 mg 08/02/24 09:00 08/02/24 09:31 Cefdinir 300 Mg Capsule PO 08/05/24 21:01 Not Given Q12HR RAKAN Dextrose 12.5 gm 07/31/24 07:28 Dextrose 50% 25 Gm/50 Ml Syringe IV PUSH PRN PRN Hypoglycemia Protocol Diphenhydramine HCl 25 mg 08/01/24 22:16 Diphenhydramine Hcl Elixir 12.5 Mg/5 Ml Udc PO HS PRN Sleep aid Enoxaparin Sodium 40 mg 08/02/24 09:00 08/02/24 09:26 Enoxaparin 40 Mg/0.4 Ml Syringe SUB-Q Not Given DAILY RAKAN Fluconazole 100 mg 08/03/24 09:00 Fluconazole 100 Mg Tablet PO QAM RAKAN Fluconazole 100 mg 08/03/24 09:00 Fluconazole 100 Mg Tablet PO 08/12/24 09:01 QAM [facility] Glucagon 1 mg 07/31/24 07:28 Glucagon For Inj 1 Mg Vial IM PRN PRN Hypoglycemia Protocol Glucose 15 gm 07/31/24 07:28 Glucose Oral Gel 15 Gm Of Glucse In 37.5 Gm Tube PO PRN PRN Hypoglycemia Protocol Hydralazine HCl 50 mg 08/01/24 13:00 08/02/24 09:26 Hydralazine Hcl 50 Mg Tablet PO 50 mg TID RAKAN Administration Dextrose 1,000 mls @ 100 mls/hr 07/31/24 07:28 Dextrose 5% 1,000 Ml IVPB PRN PRN Hypoglycemia Protocol Insulin Aspart 4 - 8 units 07/31/24 08:00 08/02/24 09:26 Insulin Aspart (*Bkc) 100 Units/Ml SUB-Q 5 units TIDWM RAKAN Administration Protocol Lisinopril 40 mg 08/02/24 09:00 08/02/24 09:26 Lisinopril 20 Mg Tablet PO 40 mg DAILY RAKAN Administration Ondansetron HCl 4 mg 07/30/24 22:02 07/31/24 10:04 Ondansetron Inj 4 Mg/2 Ml Vial IV PUSH 4 mg Q4H PRN Administration Nausea Pantoprazole Sodium 40 mg 08/02/24 09:00 08/02/24 09:26 Pantoprazole Sodium Iv 40 Mg Vial IV PUSH 40 mg QAM RAKAN Administration Radiology Results: ITS Impressions Chest X-Ray 07/30/24 15:20 IMPRESSION: No focal infiltrate or effusion. Head CT 07/30/24 15:39 IMPRESSION: 1. Old infarct involving the right basal ganglia, right internal capsule, and right frontoparietal garcia radiata. 2. Stable moderate nonspecific cerebral white matter disease, which likely represents chronic small vessel ischemic disease. Head/Neck CTA 07/31/24 22:28 IMPRESSION: 1. Unremarkable CTA head and neck. 2. Percent stenosis per NASCET criteria is 0%. Labs Labs: Laboratory Results - last 24 hr 08/01/24 08/01/24 08/01/24 10:52 12:04 17:01 WBC RBC Hgb Hct MCV MCH MCHC RDW Plt Count MPV Immature Gran % (Auto) Neut % (Auto) Lymph % (Auto) [place] % (Auto) Eos % (Auto) Baso % (Auto) Lymph # (Auto) [place] # (Auto) Eos # (Auto) Baso # (Auto) Abs Immat Gran (auto) Absolute Neuts (auto) Absolute Nucleated RBC Nucleated RBC % Sodium Potassium Chloride Carbon Dioxide Anion Gap BUN Creatinine Estim Creat Clear Calc Estimated GFR Glucose POC Capillary Glucose 223 H 218 H 278 H Calcium Magnesium Total Bilirubin AST ALT Alkaline Phosphatase Total Protein Albumin 08/01/24 08/02/24 08/02/24 19:56 05:19 07:54 WBC 11.3 H RBC 3.49 L Hgb 10.9 L Hct 34.4 L MCV 98.6 MCH 31.2 MCHC 31.7 L RDW 11.9 Plt Count 176 MPV 10.8 H Immature Gran % (Auto) 1.9 H Neut % (Auto) 61.6 Lymph % (Auto) 25.2 [place] % (Auto) 9.1 H Eos % (Auto) 1.2 Baso % (Auto) 1.0 Lymph # (Auto) 2.84 [place] # (Auto) 1.0 H Eos # (Auto) 0.1 Baso # (Auto) 0.1 Abs Immat Gran (auto) 0.21 H Absolute Neuts (auto) 6.9 H Absolute Nucleated RBC 0.000 Nucleated RBC % 0.0 Sodium 132 L Potassium 4.0 Chloride 103 Carbon Dioxide 27 Anion Gap 2 L BUN 9 Creatinine 0.49 L Estim Creat Clear Calc 79 Estimated GFR > 60 Glucose 228 H POC Capillary Glucose 292 H 251 H Calcium 8.3 L Magnesium 1.6 Total Bilirubin 0.5 AST 21 ALT 15 Alkaline Phosphatase 72 Total Protein 5.0 L Albumin 2.6 L
[2024-08-02 11:53] LABS: Glucose Point of Care 257 mg/dl (65-105)
--- NOTE | 2024-08-02 13:35 | WPDANESPN ---
Anes - Prog Note Post-Op Date/Time: 08/02/24 13:35 Cardiovascular status: normal Respiratory status: normal Airway patency: baseline Mental status: baseline Post-Op hydration status: normal Vital Signs: Last Vital Signs Temp 36.6 C 08/02/24 05:58 Pulse 99 08/02/24 11:32 Resp 18 08/02/24 11:32 BP 144/88 H 08/02/24 11:32 Pulse Ox 98 08/02/24 11:32 O2 Del Method Room Air 08/02/24 09:25 Pain Score (VAS): 0 I/O: Intake & Output 08/01/24 08/02/24 08/02/24 23:59 07:59 15:59 Intake Total 790 1100 480 Output Total 800 750 Balance -10 350 480 Laboratory Tests 08/02/24 05:19 08/02/24 05:19 08/01/24 08/01/24 08/02/24 17:01 19:56 05:19 WBC 11.3 H RBC 3.49 L Hgb 10.9 L Hct 34.4 L MCV 98.6 MCH 31.2 MCHC 31.7 L RDW 11.9 Plt Count 176 MPV 10.8 H Immature Gran % (Auto) 1.9 H Neut % (Auto) 61.6 Lymph % (Auto) 25.2 [place] % (Auto) 9.1 H Eos % (Auto) 1.2 Baso % (Auto) 1.0 Lymph # (Auto) 2.84 [place] # (Auto) 1.0 H Eos # (Auto) 0.1 Baso # (Auto) 0.1 Abs Immat Gran (auto) 0.21 H Absolute Neuts (auto) 6.9 H Absolute Nucleated RBC 0.000 Nucleated RBC % 0.0 Sodium 132 L Potassium 4.0 Chloride 103 Carbon Dioxide 27 Anion Gap 2 L BUN 9 Creatinine 0.49 L Estim Creat Clear Calc 79 Estimated GFR > 60 Glucose 228 H POC Capillary Glucose 278 H 292 H Calcium 8.3 L Magnesium 1.6 Total Bilirubin 0.5 AST 21 ALT 15 Alkaline Phosphatase 72 Total Protein 5.0 L Albumin 2.6 L 08/02/24 08/02/24 07:54 11:43 WBC RBC Hgb Hct MCV MCH MCHC RDW Plt Count MPV Immature Gran % (Auto) Neut % (Auto) Lymph % (Auto) [place] % (Auto) Eos % (Auto) Baso % (Auto) Lymph # (Auto) [place] # (Auto) Eos # (Auto) Baso # (Auto) Abs Immat Gran (auto) Absolute Neuts (auto) Absolute Nucleated RBC Nucleated RBC % Sodium Potassium Chloride Carbon Dioxide Anion Gap BUN Creatinine Estim Creat Clear Calc Estimated GFR Glucose POC Capillary Glucose 251 H 257 H Calcium Magnesium Total Bilirubin AST ALT Alkaline Phosphatase Total Protein Albumin Microbiology 07/30/24 20:08 Urine Clean Catch Urine Culture - Final Klebsiella pneumoniae Post-procedural complaints: none Patient Feedback: Patient satisfied with anesthetic care.
[2024-08-02 17:08] LABS: Glucose Point of Care 339 mg/dl (65-105)
[2024-08-02 21:56] LABS: Glucose Point of Care 347 mg/dl (65-105)
[2024-08-02] MEDS: ACETAMINOPHEN 500 MG TABLET 1000 MG PO (22:15)
[2024-08-03] VITALS (10 sets, daily range): BP systolic 128–154; BP diastolic 54–86; PULSE 68–86; RESP 16–20; TEMP 36.6–36.9; O2SAT 96–98
[2024-08-03] MEDS: ACETAMINOPHEN 500 MG TABLET 1000 MG PO ×2 (05:26→21:48)
[2024-08-03 06:03] LABS: Basophils Absolute Auto 0.1 K/mm3 (0.0-0.1); Basophils Percent Auto 0.5 % (0.2-1.2); Eosinophils Absolute Auto 0.1 K/mm3 (0-0.3); Eosinophils Percent Auto 1.4 % (0-4.4); Hematocrit 37.3 % (37.0-47.0); Hemoglobin 12.1 g/dL (12.0-15.0); Immature Granulocyte Absolute 0.18 K/mm3 (0.00-0.031); Immature Granulocyte Percent A 1.8 % (0-0.5); Lymphocytes Absolute Auto 3.04 K/mm3 (0.9-3.2); Lymphocytes Percent Auto 29.9 % (18.3-44.2); Mean Corpuscular HGB Conc 32.4 g/dl (32-36); Mean Corpuscular Hemoglobin 31.3 pg (26-34); Mean Corpuscular Volume 96.6 fl (80-100); Mean Platelet Volume 10.4 fl (7.4-10.4); Monocytes Absolute Auto 0.9 K/mm3 (0.1-0.6); Monocytes Percent Auto 8.5 % (2.6-8.5); Neutrophils Absolute Auto 5.9 K/mm3 (1.3-6.7); Neutrophils Percent Auto 57.9 % (45.5-73.1); Platelet Count Result 236 k/mm3 (150-375); Red Blood Count 3.86 M/mm3 (4.2-5.4); Red Cell Distribution Width 12.2 % (11.5-14.5); White Blood Count 10.2 K/mm3 (4.5-10.0)
[2024-08-03 06:25] LABS: Alanine Aminotransferase 18 U/L (6-35); Albumin Level 3.1 g/dL (3.5-5.1); Alkaline Phosphatase 82 U/L (38-126); Anion Gap 4 mmol/L (4-12); Aspartate Amino Transferase 22 U/L (14-36); Bilirubin,Total 0.7 mg/dL (0.2-1.3); Blood Urea Nitrogen 7 mg/dL (7-17); Carbon Dioxide 28 mmol/L (22-30); Chloride 103 mmol/L (98-107); Estimated CRCL calculation 83 ml/min; Estimated Glomerular Filt Rate > 60; Glucose 256 mg/dL (65-110); Magnesium 1.7 mg/dL (1.6-2.3); Potassium 3.9 mmol/L (3.4-5.0); Sodium 135 mmol/L (137-145)
[2024-08-03 08:16] LABS: Glucose Point of Care 246 mg/dl (65-105)
[2024-08-03] MEDS: INSULIN ASPART (*BKC) 100 UNITS/ML SUB-Q ×3 (09:15→17:45)
[2024-08-03] MEDS: FLUCONAZOLE 100 MG TABLET PO (09:40)
[2024-08-03] MEDS: lisinopriL 20 MG TABLET 40 MG PO (09:40)
[2024-08-03] MEDS: hydrALAZINE HCL 50 MG TABLET PO ×3 (09:40→17:45)
[2024-08-03] MEDS: ATORVASTATIN 40 MG TABLET 80 MG PO (09:40)
[2024-08-03] MEDS: PANTOPRAZOLE SODIUM IV 40 MG VIAL IV PUSH (09:41)
[2024-08-03] MEDS: ASPIRIN 81 MG ENTERIC TABLET PO (09:41)
[2024-08-03] MEDS: ENOXAPARIN 40 MG/0.4 ML SYRINGE SUB-Q (09:41)
--- NOTE | 2024-08-03 11:18 | P.DS_ITS ---
DS: Admitting Diagnosis Discharge Date 08/03/2024 Admitting Diagnosis UTI with dehydration and syncope DS: Discharge Diagnosis Discharge Diagnosis (1) Acute UTI: Code(s): N39.0 - Urinary tract infection, site not specified Status: Acute Assessment and Plan: - UA in ER indicative of UTI - culture with Klebsiella pnuemoniae - complete roughly 7-day course with amoxiclav liquid (2) Syncope and collapse: Code(s): R55 - Syncope and collapse Status: Acute Assessment and Plan: -secondary to uti and dehydration - no recurrence afte antibx, IVF (3) Acute dehydration: Code(s): E86.0 - Dehydration Status: Acute Assessment and Plan: -s/p fluid resuscitation - Resolved (4) Essential hypertension: Code(s): I10 - Essential (primary) hypertension Status: Acute Assessment and Plan: -08/03 reviewed and controlled (5) Dysphagia: Code(s): R13.10 - Dysphagia, unspecified Status: Acute Assessment and Plan: -Pt has history of esophageal narrowing requiring dilation every 2 years -Prior done at clinic in [facility]) by Dr. Allen about 2 years ago -patient felt like food stuck this morning with breakfast, got Maalox and IV Protonix with improvement -Full liquid diet, NPO at midnight -EGD 07/30 with melanie esophagitis - Continue fluconazole x 10 days -continue PPI (6) Type 2 diabetes mellitus with hyperglycemia, without long-term current use of insulin: Code(s): E11.65 - Type 2 diabetes mellitus with hyperglycemia Status: Acute Assessment and Plan: -08/03 receiving only SSI and FBS 24, A1c 11.5 - 08/03 at discharge added basal glargine 14 U at HS and restarted home metformin (7) History of stroke: Code(s): Z86.73 - Personal history of transient ischemic attack (TIA), and cerebral infarction without residual deficits Status: Acute Assessment and Plan: -Residual left sided weakness but usually able to ambulate 6-10 feet to use bedside commode -Dizzy with syncope on 07/30/24 -Slow progress with PT/OT -Dysphagia for 2 weeks, likely due to melanie esophagitis -continue ASA 81 mg po qdaily DS: Summary Hospital Course Hospital Course: Admitted to acute care July 30 due to increasing weakness falling and loss of consciousness. Was found to be dehydrated with UTI. Received fluid resuscitation and IV ceftriaxone. Was having recurrent dysphagia. Previous history of EGD with dilatation. After stabilized underwent EGD on July. This showed evidence for Melanie esophagitis. Fluconazole 100 mg daily was initiated. Dose was reduced due to possible drug interactions. And was to continue for 10 days. She was unable to tolerate oral cefdinir due to swallowing difficulties. Therefore at discharge liquid cefdinir was initiated to complete at least approximately a 7-day course. At home for diabetes with uncontrolled with A1c 11.5. She was taking only metformin at home. Basal glargine was added to this. During hospitalization her sugars were not well controlled on sliding scale insulin only with discharge fasting sugar 246. Time Spent with Patient Time attestation: Total time spent providing and/or coordinating discharge services: Exam Narrative: GENERAL: NAD. HEAD: Normocephalic, atraumatic. ENT:? Mucous membranes moist CHEST: Clear to auscultation.? No respiratory distress. HEART: Regular rate and rhythm. ? ABDOMEN: Soft, nontender, nondistended. EXTREMITIES: No peripheral edema. SKIN: Warm dry normal color NEURO: CN symmetric to inspection. Mild residual left arm/leg weakness, no slurred speech at this time, no facial droop. PSYCH: Normal mood and affect, A&O x4. DS: Data Data Completed and Pending Completed studies during hospitalization: Pending at discharge 08/01/24 11:46 Surgical [PTH] Routine Labs on day of discharge: Labs from last 24 hours 08/03/24 08/03/24 08/02/24 08:12 05:54 19:51 WBC 10.2 H RBC 3.86 L Hgb 12.1 Hct 37.3 MCV 96.6 MCH 31.3 MCHC 32.4 RDW 12.2 Plt Count 236 MPV 10.4 Immature Gran % (Auto) 1.8 H Neut % (Auto) 57.9 Lymph % (Auto) 29.9 [place] % (Auto) 8.5 Eos % (Auto) 1.4 Baso % (Auto) 0.5 Lymph # (Auto) 3.04 [place] # (Auto) 0.9 H Eos # (Auto) 0.1 Baso # (Auto) 0.1 Abs Immat Gran (auto) 0.18 H Absolute Neuts (auto) 5.9 Absolute Nucleated RBC 0.000 Nucleated RBC % 0.0 Sodium 135 L Potassium 3.9 Chloride 103 Carbon Dioxide 28 Anion Gap 4 BUN 7 Creatinine 0.46 L Estim Creat Clear Calc 83 Estimated GFR > 60 Glucose 256 H POC Capillary Glucose 246 H 347 H Calcium 9.0 Magnesium 1.7 Total Bilirubin 0.7 AST 22 ALT 18 Alkaline Phosphatase 82 Total Protein 6.0 L Albumin 3.1 L 08/02/24 08/02/24 16:54 11:43 WBC RBC Hgb Hct MCV MCH MCHC RDW Plt Count MPV Immature Gran % (Auto) Neut % (Auto) Lymph % (Auto) [place] % (Auto) Eos % (Auto) Baso % (Auto) Lymph # (Auto) [place] # (Auto) Eos # (Auto) Baso # (Auto) Abs Immat Gran (auto) Absolute Neuts (auto) Absolute Nucleated RBC Nucleated RBC % Sodium Potassium Chloride Carbon Dioxide Anion Gap BUN Creatinine Estim Creat Clear Calc Estimated GFR Glucose POC Capillary Glucose 339 H 257 H Calcium Magnesium Total Bilirubin AST ALT Alkaline Phosphatase Total Protein Albumin Preliminary micro results at discharge 07/31/24 08:11 Blood Culture - Preliminary Blood 07/31/24 08:01 Blood Culture - Preliminary Blood Discharge Plan Discharge Discharging Clinician: Orlando Kiser Patient Disposition: SNF Activity: as tolerated Diet: diabetic and low sodium Discharge Instructions: Swallowing precautions: Upright for meals and meds. Chin tuck when swallowing. Sips of liquid after each bite. Patient Language: Swedish Stand Alone Forms: General Discharge Information Follow-up/Referrals: Júnior,NUNO Moreno [Primary Care Provider] - Call for Appointment (after discharge from SNF) Discharge Medications: New cefdinir 250 mg/5 mL suspension for reconstitution 250 mg PO Q12H Qty: 60 0RF insulin glargine 100 unit/mL solution 14 unit subcut QPM Qty: 10 0RF metformin [Riomet] 500 mg/5 mL solution 500 mg PO BID Qty: 250 0RF Rx Instructions: with AM and PM meals dextrose [Glutose-15] 40 % Gel 15 g PO PRN PRN (Reason: Hypoglycemia) Qty: 5 0RF fluconazole [Diflucan] 100 mg Tablet 100 mg PO QAM Qty: 7 0RF Continued atorvastatin 80 mg tablet 80 mg PO DAILY Centrum Silver Women 8 mg iron-400 mcg-300 mcg tablet 1 tablet PO DAILY acetaminophen [Tylenol Extra Strength] 500 mg tablet 1,000 mg PO QAM AND QPM lisinopril 40 mg tablet 40 mg PO DAILY Tums 300 mg (750 mg) Tablet,Chewable 300 mg PO BID PRN (Reason: Dyspepsia) pantoprazole 40 mg tablet,delayed release (DR/EC) 40 mg PO DAILY hydralazine 50 mg tablet 50 mg PO TID cholecalciferol (vitamin D3) [Vitamin D3] 125 mcg (5,000 unit) Tablet 125 mcg PO DAILY diphenhydramine HCl 12.5 mg/5 mL Prefilled Spoon 25 mg PO HS PRN (Reason: sleep aid) lidocaine HCl [Aspercreme (lidocaine HCl)] 4 % Cream 1 applic TOPICAL QID PRN (Reason: Muscle Pain) Discontinued metformin 850 mg tablet 212.5 mg PO BID dextromethorphan-guaifenesin [Mucinex DM] 60-1,200 mg tablet extended release 12 hr 1 tablet PO Q12H PRN (Reason: cough) naproxen sodium [Aleve] 220 mg Capsule 220 mg PO BID PRN (Reason: Mild Pain (Scale Score 1-4)) [place] Cough Drops 3.2 mg Lozenge 6.4 mg MUCOUS MEMBRANE Q2-4H PRN (Reason: Cough) Azo Bladder Control 300 mg Capsule 1 cap PO DAILY Date of admission: 07/30/24 22:02 Primary Care Provider: Júnior,Tiffanie Admitting Provider: Alison Brink Attending physician on admission: Alison Brink Condition: Stable
[2024-08-03 12:15] LABS: Glucose Point of Care 300 mg/dl (65-105)
[2024-08-03 17:07] LABS: Glucose Point of Care 287 mg/dl (65-105)
[2024-08-03 22:28] LABS: Glucose Point of Care 297 mg/dl (65-105)
[2024-08-03] MEDS: diphenhydrAMINE HCL ELIXIR 12.5 MG/5 ML UDC 25 MG PO (23:24)
[2024-08-04 04:47] VITALS: BP 156/75; PULSE 67; RESP 14; TEMP 36.6; O2SAT 99
[2024-08-04 06:38] LABS: Basophils Absolute Auto 0.1 K/mm3 (0.0-0.1); Basophils Percent Auto 0.7 % (0.2-1.2); Eosinophils Absolute Auto 0.2 K/mm3 (0-0.3); Eosinophils Percent Auto 2.1 % (0-4.4); Hematocrit 36.1 % (37.0-47.0); Hemoglobin 11.3 g/dL (12.0-15.0); Immature Granulocyte Absolute 0.19 K/mm3 (0.00-0.031); Lymphocytes Absolute Auto 3.18 K/mm3 (0.9-3.2); Lymphocytes Percent Auto 33.1 % (18.3-44.2); Mean Corpuscular HGB Conc 31.3 g/dl (32-36); Mean Corpuscular Hemoglobin 30.5 pg (26-34); Mean Corpuscular Volume 97.6 fl (80-100); Mean Platelet Volume 10.5 fl (7.4-10.4); Monocytes Absolute Auto 0.8 K/mm3 (0.1-0.6); Monocytes Percent Auto 8.4 % (2.6-8.5); Neutrophils Absolute Auto 5.2 K/mm3 (1.3-6.7); Neutrophils Percent Auto 53.7 % (45.5-73.1); Platelet Count Result 266 k/mm3 (150-375); Red Cell Distribution Width 12.1 % (11.5-14.5); White Blood Count 9.6 K/mm3 (4.5-10.0)
[2024-08-04 06:42] LABS: Alanine Aminotransferase 15 U/L (6-35); Albumin Level 2.8 g/dL (3.5-5.1); Alkaline Phosphatase 70 U/L (38-126); Anion Gap 2 mmol/L (4-12); Aspartate Amino Transferase 20 U/L (14-36); Bilirubin,Total 0.5 mg/dL (0.2-1.3); Blood Urea Nitrogen 8 mg/dL (7-17); Calcium 8.6 mg/dL (8.4-10.2); Carbon Dioxide 27 mmol/L (22-30); Chloride 106 mmol/L (98-107); Estimated CRCL calculation 80 ml/min; Estimated Glomerular Filt Rate > 60; Glucose 239 mg/dL (65-110); Magnesium 1.8 mg/dL (1.6-2.3); Potassium 3.9 mmol/L (3.4-5.0); Sodium 135 mmol/L (137-145)
[2024-08-04 08:33] LABS: Glucose Point of Care 245 mg/dl (65-105)
[2024-08-04 08:36] VITALS: BP 145/62; PULSE 77; RESP 18; TEMP 36.1; O2SAT 97
[2024-08-04] MEDS: ASPIRIN 81 MG ENTERIC TABLET PO (08:38)
[2024-08-04] MEDS: lisinopriL 20 MG TABLET 40 MG PO (08:38)
[2024-08-04] MEDS: FLUCONAZOLE 100 MG TABLET PO (08:38)
[2024-08-04] MEDS: ATORVASTATIN 40 MG TABLET 80 MG PO (08:38)
[2024-08-04] MEDS: hydrALAZINE HCL 50 MG TABLET PO ×2 (08:38→12:05)
[2024-08-04 08:40] VITALS: O2SAT 97
[2024-08-04] MEDS: PANTOPRAZOLE SODIUM IV 40 MG VIAL IV PUSH (08:40)
[2024-08-04] MEDS: ENOXAPARIN 40 MG/0.4 ML SYRINGE SUB-Q (08:40)
[2024-08-04] MEDS: INSULIN ASPART (*BKC) 100 UNITS/ML SUB-Q ×2 (08:47→12:46)
--- NOTE | 2024-08-04 10:11 | PM.DS ---
DS: Admitting Diagnosis Discharge Date 08/04 Admitting Diagnosis weakness, loc DS: Discharge Diagnosis Discharge Diagnosis (1) Acute UTI: Code(s): N39.0 - Urinary tract infection, site not specified Status: Acute Assessment and Plan: - culture with Klebsiella pnuemoniae discharge liquid cefdinir was initiated to complete at least approximately a 7-day course- rx was ordered on 08/[address] Kiser (2) Syncope and collapse: Code(s): R55 - Syncope and collapse Status: Acute (3) Acute dehydration: Code(s): E86.0 - Dehydration Status: Acute Assessment and Plan: - Resolved (4) Essential hypertension: Code(s): I10 - Essential (primary) hypertension Status: Acute Assessment and Plan: no med changed upon discharge (5) Dysphagia: Code(s): R13.10 - Dysphagia, unspecified Status: Acute Assessment and Plan: -Pt has history of esophageal narrowing requiring dilation every 2 years -Prior done at clinic in [facility]) by Dr. Allen about 2 years ago -patient felt like food stuck this morning with breakfast, got Maalox and IV Protonix with improvement -Full liquid diet, NPO at midnight -EGD 07/30 with melanie esophagitis - Continue fluconazole x 10 days -continue PPI (6) Type 2 diabetes mellitus with hyperglycemia, without long-term current use of insulin: Code(s): E11.65 - Type 2 diabetes mellitus with hyperglycemia Status: Acute Assessment and Plan: -08/03 receiving only SSI and FBS 24, A1c 11.5 - 08/03 at discharge added basal glargine 14 U at HS and restarted home metformin rx sent per DR Kiser on 08/03 (7) History of stroke: Code(s): Z86.73 - Personal history of transient ischemic attack (TIA), and cerebral infarction without residual deficits Status: Acute Assessment and Plan: -Residual left sided weakness but usually able to ambulate 6-10 feet to use bedside commode -Dizzy with syncope on 07/30/24 -Slow progress with PT/OT -Dysphagia for 2 weeks, likely due to melanie esophagitis -continue ASA 81 mg po qdaily DS: Summary Hospital Course Hospital Course: Admitted to the hospital on July 30 due to increasing weakness falling and loss of consciousness. Was found to be dehydrated with UTI. Received fluid resuscitation and IV ceftriaxone. Was having recurrent dysphagia. Previous history of EGD with dilatation. After stabilized underwent EGD on July. This showed evidence for Melanie esophagitis. Fluconazole 100 mg daily was initiated. Dose was reduced due to possible drug interactions. And was to continue for 10 days. She was unable to tolerate oral cefdinir due to swallowing difficulties. Therefore at discharge liquid cefdinir was initiated to complete at least approximately a 7-day course. At home for diabetes with uncontrolled with A1c 11.5. She was taking only metformin at home. Basal glargine was added to this. During hospitalization her sugars were not well controlled on sliding scale insulin only with discharge fasting sugar 246. She will be discharged with lantus- 14 units at hs- rx sent per DR Kiser, 08/03 Status at Discharge Functional status at discharge: uses cane/walker Time Spent with Patient Time attestation: Total time spent providing and/or coordinating discharge services: Time spent: Greater than 30 minutes Exam Narrative: GENERAL: NAD. HEAD: Normocephalic, atraumatic. ENT:? Mucous membranes moist CHEST: Clear to auscultation.? No respiratory distress. HEART: Regular rate and rhythm. ? ABDOMEN: Soft, nontender, nondistended. EXTREMITIES: No peripheral edema. SKIN: Warm dry normal color NEURO: CN symmetric to inspection. Mild residual left arm/leg weakness, no slurred speech at this time, no facial droop. PSYCH: Normal mood and affect, A&O x4. DS: Data Data Completed and Pending Completed studies during hospitalization: Pending at discharge 08/01/24 11:46 Surgical [PTH] Routine Labs on day of discharge: Labs from last 24 hours 08/04/24 08/04/24 08/03/24 08:26 06:15 21:49 WBC 9.6 RBC 3.70 L Hgb 11.3 L Hct 36.1 L MCV 97.6 MCH 30.5 MCHC 31.3 L RDW 12.1 Plt Count 266 MPV 10.5 H Immature Gran % (Auto) 2.0 H Neut % (Auto) 53.7 Lymph % (Auto) 33.1 Curry % (Auto) 8.4 Eos % (Auto) 2.1 Baso % (Auto) 0.7 Lymph # (Auto) 3.18 Curry # (Auto) 0.8 H Eos # (Auto) 0.2 Baso # (Auto) 0.1 Abs Immat Gran (auto) 0.19 H Absolute Neuts (auto) 5.2 Absolute Nucleated RBC 0.000 Nucleated RBC % 0.0 Sodium 135 L Potassium 3.9 Chloride 106 Carbon Dioxide 27 Anion Gap 2 L BUN 8 Creatinine 0.48 L Estim Creat Clear Calc 80 Estimated GFR > 60 Glucose 239 H POC Capillary Glucose 245 H 297 H Calcium 8.6 Magnesium 1.8 Total Bilirubin 0.5 AST 20 ALT 15 Alkaline Phosphatase 70 Total Protein 6.0 L Albumin 2.8 L 08/03/24 08/03/24 17:02 12:10 WBC RBC Hgb Hct MCV MCH MCHC RDW Plt Count MPV Immature Gran % (Auto) Neut % (Auto) Lymph % (Auto) Curry % (Auto) Eos % (Auto) Baso % (Auto) Lymph # (Auto) Curry # (Auto) Eos # (Auto) Baso # (Auto) Abs Immat Gran (auto) Absolute Neuts (auto) Absolute Nucleated RBC Nucleated RBC % Sodium Potassium Chloride Carbon Dioxide Anion Gap BUN Creatinine Estim Creat Clear Calc Estimated GFR Glucose POC Capillary Glucose 287 H 300 H Calcium Magnesium Total Bilirubin AST ALT Alkaline Phosphatase Total Protein Albumin Preliminary micro results at discharge 07/31/24 08:11 Blood Culture - Preliminary Blood 07/31/24 08:01 Blood Culture - Preliminary Blood Discharge Plan Discharge Attending physician on discharge: Yonas Richardson Discharging Clinician: Cris Huynh Patient Disposition: SNF Activity: may shower and as tolerated Diet: diabetic and low sodium Discharge Instructions: Swallowing precautions: Upright for meals and meds. Chin tuck when swallowing. Sips of liquid after each bite. Patient Language: Honduran Stand Alone Forms: General Discharge Information Follow-up/Referrals: Júnior,NUNO Moreno [Primary Care Provider] - Call for Appointment (after discharge from SNF) Discharge Medications: New fluconazole [Diflucan] 100 mg Tablet 100 mg PO QAM Qty: 7 0RF dextrose [Glutose-15] 40 % Gel 15 g PO PRN PRN (Reason: Hypoglycemia) Qty: 5 0RF cefdinir 250 mg/5 mL suspension for reconstitution 250 mg PO Q12H Qty: 60 0RF metformin [Riomet] 500 mg/5 mL solution 500 mg PO BID Qty: 250 0RF Rx Instructions: with AM and PM meals insulin glargine 100 unit/mL solution 14 unit subcut QPM Qty: 10 0RF Continued atorvastatin 80 mg tablet 80 mg PO DAILY Centrum Silver Women 8 mg iron-400 mcg-300 mcg tablet 1 tablet PO DAILY acetaminophen [Tylenol Extra Strength] 500 mg tablet 1,000 mg PO QAM AND QPM lisinopril 40 mg tablet 40 mg PO DAILY Tums 300 mg (750 mg) Tablet,Chewable 300 mg PO BID PRN (Reason: Dyspepsia) pantoprazole 40 mg tablet,delayed release (DR/EC) 40 mg PO DAILY hydralazine 50 mg tablet 50 mg PO TID cholecalciferol (vitamin D3) [Vitamin D3] 125 mcg (5,000 unit) Tablet 125 mcg PO DAILY diphenhydramine HCl 12.5 mg/5 mL Prefilled Spoon 25 mg PO HS PRN (Reason: sleep aid) lidocaine HCl [Aspercreme (lidocaine HCl)] 4 % Cream 1 applic TOPICAL QID PRN (Reason: Muscle Pain) Discontinued metformin 850 mg tablet 212.5 mg PO BID dextromethorphan-guaifenesin [Mucinex DM] 60-1,200 mg tablet extended release 12 hr 1 tablet PO Q12H PRN (Reason: cough) naproxen sodium [Aleve] 220 mg Capsule 220 mg PO BID PRN (Reason: Mild Pain (Scale Score 1-4)) [place] Cough Drops 3.2 mg Lozenge 6.4 mg MUCOUS MEMBRANE Q2-4H PRN (Reason: Cough) Azo Bladder Control 300 mg Capsule 1 cap PO DAILY Date of admission: 07/30/24 22:02 Primary Care Provider: Júnior,Tiffanie Admitting Provider: Alison Brink Attending physician on admission: Alison Brink Condition: Stable Quality VTE Prophylaxis VTE prophylaxis: mechanical ordered Hospitalist MIPS Heart Failure (Exclusion) Patient has history of Heart Transplant or Left Ventricular Assistive Device?: No IF YES, STOP HERE Heart Failure (Qualifier) Patient has current or prior documentation of LVEF less than or equal to 40%, or mod/servere depressed LVSF?: No IF NO, STOP HERE
[2024-08-04 11:37] LABS: SARS-CoV-2 RNA PCR Negative (Negative)
[2024-08-04 11:55] VITALS: BP 135/62; PULSE 71; RESP 14; TEMP 36.4; O2SAT 98
[2024-08-04] MEDS: CEFDINIR 250 MG/5 ML ORAL SUSPENSION PO (11:57)
[2024-08-04 12:22] LABS: Glucose Point of Care 218 mg/dl (65-105)
== END 2024-08-04 15:26 | DRG 690 ==
LOC: ANHED 22:02 → ANH2MED 23:07
PROVIDERS: Internal Medicine Gastroenterology; Nurse Practitioner; Admitting Provider Internal Medicine; Emergency Provider Student in an Organized Health Care Education/Training Program; PCP Physician Assistant; Visit Provider Nurse Practitioner
PROC: 0DJ08ZZ Inspection of Upper Intestinal Tract, Via Natural or Artificial Opening Endoscopic (ICD-10-PCS; principal; 2024-08-01 11:30)
DX: N39.0 Urinary tract infection, site not specified (principal); I69.354 Hemiplegia and hemiparesis following cerebral infarction affecting left non-dominant side; B37.81 Candidal esophagitis; B37.0 Candidal stomatitis; B96.1 Klebsiella pneumoniae [K. pneumoniae] as the cause of diseases classified elsewhere; R13.10 Dysphagia, unspecified; R55 Syncope and collapse; E86.0 Dehydration; I10 Essential (primary) hypertension; E11.65 Type 2 diabetes mellitus with hyperglycemia; E11.42 Type 2 diabetes mellitus with diabetic polyneuropathy; K29.30 Chronic superficial gastritis without bleeding; M79.7 Fibromyalgia; D50.9 Iron deficiency anemia, unspecified; Z85.3 Personal history of malignant neoplasm of breast; Z96.642 Presence of left artificial hip joint; Z95.0 Presence of cardiac pacemaker; Z90.49 Acquired absence of other specified parts of digestive tract; Z90.710 Acquired absence of both cervix and uterus
CPT/HCPCS: 36415; 70450; 70496; 70498; 71045; 80053; 81001; 82010; 82803; 82948; 83036; 83605; 83735; 84484; 85025; 85055; 85610; 85730; 86850; 86900; 86901; 87040; 87086; 87186; 87635; 87637; 87651; 88305; 93005; 96361; 96365; 96375; 96376; 97110; 97116; 97161; 97165; 97530; 97535; 99285; A9270; J0696; J1650; J1815; J2003; J2405; J2470; J2704; J7030; J7120; Q9967

== ENCOUNTER 2025-04-01 08:08 | Outpatient (CLI) | payer MEDICARE, OTHER, SELFPAY ==
--- NOTE | ~2025-04-01 | CT_ITS ---
EXAMINATION: CT abdomen pelvis wo con DATE: 04/01/2025 08:31 INDICATION: Localized edema of left lower extremity. TECHNIQUE: Computed tomography (CT) of the abdomen and pelvis was performed without intravenous contrast. Automated exposure control and iterative reconstruction technique were employed. The dose-length product was 829.40 mGy-cm. COMPARISON: CT abdomen and pelvis 03/11/2013 FINDINGS: The visualized portions of the lung bases demonstrate mild atelectasis. No pleural effusion. The heart size is normal. There are coronary artery calcifications. No pericardial effusion. There are pacer wires in right atrium and right ventricle. The liver demonstrates pneumobilia, likely secondary to sphincterotomy. There are changes of cholecystectomy. The spleen, pancreas, and adrenal glands are normal. There is a parenchymal calcification in right kidney. There is a 2 mm stone in left kidney. Stool distends the rectum. There is a large volume of stool in the colon. The appendix is not visualized. There are no pathologically enlarged lymph nodes. There is no free intraperitoneal fluid. There is a symmetric subcutaneous edema in left thigh. There is a left hip arthroplasty. Epidural electrodes are noted. There is moderate thoracic spondylosis and severe lumbar spondylosis. There is a compression fracture of L3 with 1/5 loss of height. IMPRESSION: 1. Age-indeterminate L3 compression fracture. Reviewed, dictated and finalized at location E.
== END 2025-04-01 08:09 | disposition home or self-care (01) ==
PROVIDERS: Visit Provider Physician Assistant
DX: S32.030A Wedge compression fracture of third lumbar vertebra, initial encounter for closed fracture (principal); X58.XXXA Exposure to other specified factors, initial encounter
CPT/HCPCS: 74176